=== PATIENT | female | born 1930 | race Caucasian/White ===

== ENCOUNTER 2016-06-23 15:40 | Inpatient (IN) | payer MEDICARE, OTHER ==
[~2016-06-23] VITALS: Ht 149.9 cm; Wt 42.4 kg
[~2016-06-23 15:40] MED LIST: ASPI-664 PO; ATEN50TA PO; GLIP1TAB32 PO; LISI40TA9 PO; PANT40TA3 PO; TRAZ50TA18 PO; ZOC20 PO
--- NOTE | 2016-06-23 19:42 | ERA ---
ER Documentation Chief Complaint Date/Time DATE: 06/23/16 TIME: 19:39 Chief Complaint syncopal episode while eating HPI 83-year-old woman with a history of multiple medical problems including type 2 diabetes, hypertension, chronic anemia presents for evaluation after having had a syncopal event today. Patient was lunch with her daughter eating Eric food when she had an acute syncopal event. Per the daughter who witnessed the whole event patient was talking to her and then passed out without any prodrome. Luckily she was sitting down and there was no head injury or fall out of her chair. Patient took a few seconds to regain consciousness and a few minutes to feel back to her baseline. Patient denies any prodrome of nausea, tunnel vision, or lightheadedness prior to the syncopal event. The event was nonexertional. Patient is a symptomatic at this time. She denies any prior history of a similar event. Denies any recent nausea, vomiting, diarrhea and reports good p.o. intake. She denies any urinary symptoms or GI bleeding symptoms. She denies any chest pain, headache, flank pain prior to the event. She does report that she had a mild headache after the event that resolved spontaneously. ROS All systems reviewed and are negative except as per history of present illness. Medications Home Meds Reported Medications Aspirin (Low Dose Aspirin) 81 Mg Tablet.dr, 81 MG PO DAILY 09/15/14 Glipizide-Metformin (Glipizide-Metformin) 5-500 Tab, 1 TAB PO DAILY, TAB 09/15/14 Lisinopril* (Lisinopril*) 40 Mg Tablet, 40 MG PO DAILY, TAB 09/15/14 Pantoprazole* (Protonix*) 40 Mg Tablet.dr, 40 MG PO DAILY, TAB 09/15/14 Atenolol* (Atenolol*) 50 Mg Tablet, 50 MG PO DAILY, TAB 09/15/14 Simvastatin (Simvastatin) 20 Mg Tablet, 20 MG PO HS, TAB 09/15/14 Trazodone Hcl* (Trazodone Hcl*) 50 Mg Tablet, 50 MG PO HS, TAB 09/15/14 Allergies Allergies: Coded Allergies: sulfamethoxazole (Verified Allergy, Mild, SWOLLEN LIPS/MOUTH 2 DAYS AFTER TAKING MED PER PT, 06/24/16) MD SAID IT COULD BE ALLERGIC RXN TO SAID MEDICINE PER PT trimethoprim (Verified Allergy, Mild, SWOLLEN LIPS/MOUTH 2 DAYS AFTER TAKING MED PER PT, 06/24/16) MD SAID IT COULD BE ALLERGIC RXN TO SAID MEDICINE PER PT PMhx/Soc type 2 diabetes, hypertension, chronic anemia History of Surgery: Yes (COLON RESECTION) Anesthesia Reaction: No Hx Neurological Disorder: No Hx Respiratory Disorders: No Hx Cardiac Disorders: Yes (HTN) Hx Psychiatric Problems: No Hx Miscellaneous Medical Probl: No Hx Alcohol Use: No Hx Substance Use: No Hx Tobacco Use: No FmHx Family History: No coronary disease, No diabetes, No other Physical Exam Vitals Vital Signs Date Time Temp Pulse Resp B/P Pulse Ox O2 Delivery O2 Flow Rate FiO2 06/23/16 15:42 97.9 73 20 203/96 95 Physical Exam General: alert, well appearing, and in no distress, AOx4. normal pulse oximetry. Euvolemic Head: Atraumatic, normocephalic Eyes: pupils equal and reactive, extraocular eye movements intact, sclera anicteric. Oropharynx: moist mucous membranes, pharynx normal without lesions. Neck: supple, no significant adenopathy. No carotid bruits Heart: normal rate, regular rhythm, normal S1, S2, no murmurs, rubs, clicks or gallops. Peripheral pulses: normal Lungs: clear to auscultation, no wheezes, rales or rhonchi, symmetric air entry and normal work of breathing. Abdomen: soft, nontender, nondistended, no masses or organomegaly Extremities: no joint tenderness, deformity or swelling. Skin: normal coloration and turgor, no rashes, no suspicious skin lesions noted. Neurologic: Alert, moving all extremities symmetrically x 4, sensation grossly intact, no gross deficits Result Diagram: 06/23/16212406/23/162124 Results 24 hrs Laboratory Tests Test 06/23/16 20:27 06/23/16 21:25 06/23/16 21:38 Urine Bilirubin NEGATIVE Urine Clarity CLEAR Urine Color LT. YELLOW Urine Glucose NEGATIVE% Urine Hemoglobin TRACE Urine Ketones NEGATIVE Urine Leukocyte Esterase TRACE Urine Microscopic RBC 0-2/HPF Urine Microscopic WBC 0-2/HPF Urine Nitrite NEGATIVE Urine Specific Vaughn 1.010 Urine Squamous Epithelial Cells RARE Urine Total Protein NEGATIVE Urine Urobilinogen 0.2 E.U./dL Urine pH 6.0 Anion Gap 16 Basophils # 0.010^3/ul Basophils % 0.3% Blood Morphology Comment Blood Urea Nitrogen 19mg/dl Calcium Level 10.0mg/dl Carbon Dioxide Level 29mmol/L Chloride Level 101mmol/L Creatinine 0.70mg/dl Eosinophils # 0.310^3/ul Eosinophils % 3.0% Glucose Level 138mg/dl Hematocrit 36.7% Hemoglobin 12.2g/dl Lymphocytes # 1.910^3/ul Lymphocytes % 20.7% Mean Corpuscular Hemoglobin 28.7pg Mean Corpuscular Hemoglobin Concent 33.3g/dl Mean Corpuscular Volume 86.3fl Mean Platelet Volume 8.9fl Monocytes # 0.810^3/ul Monocytes % 8.5% Neutrophils # 6.010^3/ul Neutrophils % 67.5% Nucleated Red Blood Cells # 0.010^3/ul Nucleated Red Blood Cells % 0.0/100WBC Platelet Count 51035^3/UL Potassium Level 3.7mmol/L Red Blood Count 4.2510^6/ul Red Cell Distribution Width 14.5% Sodium Level 142mmol/L Troponin I < 0.012ng/ml White Blood Count 8.910^3/ul Bedside Glucose 139mg/dL Procedures/MDM EKG, MONITORS, & DIAGNOSTIC IMAGING: EKG showing normal sinus rhythm at 70 bpm with first-degree AV block, no ST elevations, ST depressions, positive T-wave inversions in V1 and V2. Normal intervals except for AK interval. Left axis deviation. No WPW, no Brugada, no prolonged QTC, no acute ischemia, no ARVD. CXR: IMPRESSION: 1. Atherosclerotic aorta 2. A 1-cm bleb is seen within the right lower lung zone. 3. Osteoporosis with mild degenerative spine changes along with a dextroscoliotic curve of the thoracic spine. LAB INTERPRETATION: Labs unremarkable MEDICAL DECISION MAKIN-year-old woman with a history of multiple medical problems including type 2 diabetes, hypertension, chronic anemia presents for evaluation after having had a syncopal event today. Her ECG is unremarkable and she has a normal examination , showing elevated BP but asymptomatic. No clinical e/o heart failure, heart murmur, or carotid bruits. No GI bleeding and normal hb. No headache c/f SAH, or flank pain c/f ruptured AAA. Patient will be admitted for high risk syncope, suspect cardiovascularly mediated syncope. Departure Diagnosis: Primary Impression: Syncope Qualified Code: R55 - Syncope, unspecified syncope type Condition: Fair MEHNAZ GENTILE MD Jun 23, 2016 19:42 MEHNAZ GENTILE MD Jun 23, 2016 19:42
[2016-06-23 21:06] LABS: ADD UMIC YES; URINE BILIRUBIN (Dip) NEGATIVE (NEGATIVE); URINE BLOOD (Dip) TRACE (NEGATIVE); URINE COLOR LT. YELLOW (YELLOW); URINE GLUCOSE (Dip) NEGATIVE (NEGATIVE); URINE KETONES (Dip) NEGATIVE (NEGATIVE); URINE LEUKOCYTE ESTERASE (Dip) TRACE (NEGATIVE); URINE NITRITE (Dip) NEGATIVE (NEGATIVE); URINE TOTAL PROTEIN (Dip) NEGATIVE (NEGATIVE); URINE UROBILINOGEN (Dip) 0.2 E.U./dL (0.1-1.0)
--- NOTE | 2016-06-23 21:08 | RADRPT ---
PROCEDURE: XR Chest AP portable CLINICAL INDICATION: Syncope TECHNIQUE: An AP portable radiograph of the chest was submitted. COMPARISON: None. FINDINGS: Support Hardware: None Cardiovascular: The cardiovascular silhouette appears unremarkable, except for atherosclerotic currie e involving the aorta. Lung De Souza: A 1-cm bleb is seen within the right lower lung zone but the lung de souza are otherwise clear. Pleural Spaces: No pneumothorax or pleural effusion is identified. Osseous Structures: Mild diffuse degenerative spine changes are noted with osteoporosis. There is a mild dextroscoliotic curve of the thoracic spine. Soft Tissues: The soft tissues appear unremarkable. IMPRESSION: 1. Atherosclerotic aorta 2. A 1-cm bleb is seen within the right lower lung zone. 3. Osteoporosis with mild degenerative spine changes along with a dextroscoliotic curve of the thor acic spine. Physician Tatyana Date Time Electronically viewed and signed by Physician Tatyana on 06/23/2016 21:08 /
[2016-06-23 21:41] LABS: SQUAMOUS EPITHELIAL CELL,UR RARE; URINE RBCS 0-2 /HPF (0)
[2016-06-23 21:45] LABS: BASOPHILS % 0.3 % (0.0-2.0); EOSINOPHILS # 0.3 10^3/ul (0.0-0.5); HEMATOCRIT 36.7 % (37.0-47.0); HEMOGLOBIN 12.2 g/dl (12.0-16.0); LYMPHOCYTES # 1.9 10^3/ul (0.8-2.9); LYMPHOCYTES % 20.7 % (15.0-51.0); MEAN CORPUSCULAR HEMOGLOBIN 28.7 pg (29.0-33.0); MEAN CORPUSCULAR HGB CONC 33.3 g/dl (32.0-37.0); MEAN CORPUSCULAR VOLUME 86.3 fl (82.0-101.0); MEAN PLATELET VOLUME 8.9 fl (7.4-10.4); MONOCYTE # 0.8 10^3/ul (0.3-0.9); MONOCYTES % 8.5 % (0.0-11.0); NEUTROPHILS % 67.5 % (39.0-77.0); PLATELET COUNT 187 10^3/UL (140-440); RED BLOOD COUNT 4.25 10^6/ul (4.20-5.40); RED CELL DISTRIBUTION WIDTH 14.5 % (11.5-14.5); UNCORRECTED WBC 8.9 10^3/ul (4.8-10.8); WHITE BLOOD COUNT 8.9 10^3/ul (4.8-10.8)
[2016-06-23 21:47] LABS: CONDITION 1; LH ANALYZER COMMENTS 1
[2016-06-23 21:51] LABS: CHLORIDE 101 mmol/L (97-110); POTASSIUM 3.7 mmol/L (3.5-5.1); SODIUM 142 mmol/L (135-144)
[2016-06-23 21:55] LABS: ANION GAP 16 (8-16); BLOOD UREA NITROGEN 19 mg/dl (7-20); CARBON DIOXIDE 29 mmol/L (21-31); GLUCOSE 138 mg/dl (70-220)
[2016-06-23 22:07] LABS: TROPONIN-I < 0.012 ng/ml (0.00-0.12)
[2016-06-24] VITALS (14 sets, daily range): BP systolic 123–227; BP diastolic 60–96; PULSE 50–71; RESP 18; TEMP 98.1; Ht 149.9 cm; Wt 42.4 kg
[2016-06-24] MEDS ORDERED: ATENOLOL 50 MG TAB PO ONE (08:30)
[2016-06-24] MEDS: INSULIN ASPART [NOVOLOG] 3 ML PEN SC SCH ×3 (11:38→21:00)
[2016-06-24] MEDS: PANTOPRAZOLE (EC) 40 MG TAB PO SCH (11:45)
--- NOTE | 2016-06-24 14:36 | RADRPT ---
PROCEDURE: US Carotids. CLINICAL INDICATION: bruit , syncope TECHNIQUE: Multiple sonographic of the carotid bifurcation region and vertebral arteries were obta ined utilizing granado scale, duplex and color-flow imaging. The images were reviewed on a PACS worksta tion. COMPARISON: No prior studies are available for comparison. FINDINGS: Evaluation of the right carotid bifurcation region reveals mild calcific atherosclerotic disease. Evaluation of the left carotid bifurcation region reveals mild calcific atherosclerotic disease. T here is a 23% stenosis in the left carotid bulb. There is antegrade flow within the vertebral arteries bilaterally. RIGHT CAROTID MEASUREMENTS: Common Carotid Ahhoca30 (cm/sec) Internal Carotid Artery - bjjmeegc30.8 (cm/sec) Internal Carotid Artery - mid50.8 (cm/sec) Internal Carotid Artery - ylzwbf93.5 (cm/sec) Internal Carotid/Common Carotid1.71 LEFT CAROTID MEASUREMENTS: Common Carotid Ahgbeg97.4 (cm/sec) Internal Carotid Artery - ujjuxwbd29.9 (cm/sec) Internal Carotid Artery - mid52.8 (cm/sec) Internal Carotid Artery - jmryla59.8 (cm/sec) Internal Carotid/Common Carotid1.23 RPTAT: AA IMPRESSION: No evidence for hemodynamically significant stenosis in the bilateral internal carotid arteries - va lidated velocity measurements with angiographic measurements, velocity criteria are extrapolated fro m diameter data as defined by the Society of Radiologists in Ultrasound Consensus Conference Radiolo gy 2003; 229;340-346. This study does indirectly reference the measurement of the distal ICA diamet er as the denominator for stenosis measurement. Normal antegrade flow in the vertebral arteries bilaterally. .Jose Enrique Santacruz MD, Date Time Electronically viewed and signed by .Jose Enrique Santacruz MD, MD on 06/24/2016 14:36 .S/
--- NOTE | 2016-06-24 18:50 | HP ---
DATE OF ADMISSION: 06/23/2016 CHIEF COMPLAINT AND HISTORY OF PRESENT ILLNESS: The patient is an 85-year-old lady well known to me from previous followup, with history of type 2 diabetes mellitus, hypertension, chronic anemia, who while having lunch with the daughter yesterday having a sandwich, when her daughter had witnessed t he patient passing out and fell forward. There was no history of fall. A few seconds later, the pa tient regained consciousness. The patient denied any nausea, vomiting, headache, dizziness, vertigo prior to the event. The patient also did not have any chest pains or shortness of breath at that t celio. Patient was brought into the emergency room from where she was admitted for evaluation of sync ope. MEDICATIONS: 1. Aspirin 81 mg daily. 2. Glipizide. 3. Metformin 5/500 one tab p.o. every day. 4. Lisinopril 40 mg daily. 5. Pantoprazole 40 mg daily. 6. Atenolol 50 mg daily. 7. Simvastatin 20 mg p.o. daily. 8. Trazodone 50 mg at bedtime. ALLERGIES: SULFA. REVIEW OF SYSTEMS: HEAD: The patient denies any headaches, focal weakness, or numbness. No prior history of TIA. EYES: Prior history of surgery for glaucoma. The patient denies any blurry vision. ENT: Noncontributory. NECK: No history of thyroid disease. CHEST: No bronchitis, hayfever, or asthma. Patient smoked for about 20+ years, stopped almost 30 y ears back. CARDIOVASCULAR: No chest pain, palpitations. History of hyperlipidemia. No history of exertional chest pain. Diabetes mellitus type 2 for the last 14 years, well controlled. GASTROINTESTINAL: No constipation, diarrhea, change in bowel habits. History of colonoscopy done a bout 5 years ago showed polyps and question possible malignant. The patient has been advised to fol low up with GI MD with colonoscopy, and the patient has not followed up so far. GENITOURINARY: No history of dysuria, hematuria, kidney stones. Mammogram 4 years ago was normal. FAMILY HISTORY: Mother had hypertension, of [place] in her 50s. No history of breast or colon canc er in the family. The patient is , has 1 daughter. PHYSICAL EXAMINATION: GENERAL: The patient is an average-built female who is presently awake, alert. VITAL SIGNS: Blood pressure max over the last 24 hours of 227/93, presently 131/65, temperature 98. 2, heart rate 64 per minute regular. O2 sat 95% on room air. HEENT: Normocephalic. Mild pallor without cyanosis or icterus. Tongue is coated, dry. NECK: Supple. No thyromegaly, bruits, or lymphadenopathy noted. No carotid bruits evident. HEART: S1, S2 heard with no definite gallops or murmurs. ABDOMEN: Soft, nontender, no hepatosplenomegaly. EXTREMITIES: No edema. Pedal pulsations 1+ bilaterally. Homans sign is negative. NEUROLOGIC: The patient is awake, alert. Will maintain long-term and short-term memory. No signs of meningismus. Cranial nerves II through XII within normal limits. Reflexes symmetrical in both u pper and lower extremities. Good strength both upper and lower extremities. Gait not tested. RECTAL: Deferred due to patient discomfort. LABORATORY DATA: WBC count 8.9, hematocrit 36.9, platelet count 187,000. Sodium 142, potassium 3.7 , BUN 19, creatinine 0.7. Troponin 0.01. Glucose 139. UA shows trace positive leukocyte esterase and urine hemoglobin trace positive. Chest x-ray shows atherosclerotic aorta, osteoporosis of the t horacic spine. IMPRESSION: 1. Syncope, query vasovagal, query cardiac arrhythmia. 2. Diabetes mellitus type 2. 3. Accelerated hypertension. 4. Osteopenia. 5. History of malignant colonic polyps. Patient has not had a GI workup as recommended. PLAN: The patient will be admitted to the telemetry. Closely monitor the rhythm. Obtain . S he may have an underlying urinary tract infection as well. Will obtain a urine culture and sensitiv ity. Obtain carotid studies. Initiate physical therapy evaluation for transfer and gait training. Neurology consultation if necessary in due course. Dictated By: BORIS ERNANDEZ MD SR/NTS Conf#: [id number] DID#: [id number]
[2016-06-24] MEDS: ACETAMINOPHEN 500 MG TAB PO PRN (20:04)
[2016-06-24] MEDS: traZODone 50 MG TAB PO SCH (21:14)
[2016-06-24] MEDS: SIMVASTATIN 20 MG TAB PO SCH (21:14)
[2016-06-25] VITALS (15 sets, daily range): BP systolic 119–183; BP diastolic 52–76; PULSE 50–72; RESP 18–20
[2016-06-25] MEDS: ACCUCHECK XX SCH (02:00)
[2016-06-25] MEDS: PANTOPRAZOLE (EC) 40 MG TAB PO SCH (04:56)
[2016-06-25 07:22] LABS: ALBUMIN 3.5 g/dl (3.3-4.9)
[2016-06-25 07:23] LABS: POTASSIUM 4.7 mmol/L (3.5-5.1)
[2016-06-25 07:25] LABS: BILIRUBIN,INDIRECT 0.3 mg/dl (0-1.1); BILIRUBIN,TOTAL 0.3 mg/dl (0.2-1.3); CREATININE 0.76 mg/dl (0.44-1.00)
[2016-06-25 07:26] LABS: ALBUMIN/GLOBULIN RATIO 1.25; CALCIUM 9.5 mg/dl (8.4-10.2); CHOL/HDL RATIO 2.6 RATIO; TOTAL PROTEIN 6.3 g/dl (6.1-8.1)
[2016-06-25 07:27] LABS: BASOPHILS % 0.1 % (0.0-2.0); EOSINOPHILS # 0.2 10^3/ul (0.0-0.5); EOSINOPHILS % 3.1 % (0.0-7.0); HEMATOCRIT 34.3 % (37.0-47.0); HEMOGLOBIN 11.5 g/dl (12.0-16.0); LYMPHOCYTES # 1.4 10^3/ul (0.8-2.9); LYMPHOCYTES % 17.8 % (15.0-51.0); MEAN CORPUSCULAR HEMOGLOBIN 29.1 pg (29.0-33.0); MEAN CORPUSCULAR HGB CONC 33.6 g/dl (32.0-37.0); MEAN CORPUSCULAR VOLUME 86.5 fl (82.0-101.0); MONOCYTE # 0.6 10^3/ul (0.3-0.9); MONOCYTES % 7.5 % (0.0-11.0); NEUTROPHIL # 5.5 10^3/ul (1.6-7.5); NEUTROPHILS % 71.5 % (39.0-77.0); PLATELET COUNT 171 10^3/UL (140-440); RED BLOOD COUNT 3.97 10^6/ul (4.20-5.40); RED CELL DISTRIBUTION WIDTH 14.4 % (11.5-14.5); UNCORRECTED WBC 7.7 10^3/ul (4.8-10.8); WHITE BLOOD COUNT 7.7 10^3/ul (4.8-10.8)
[2016-06-25 07:44] LABS: CONDITION 1
[2016-06-25] MEDS: INSULIN ASPART [NOVOLOG] 3 ML PEN SC SCH ×4 (08:00→20:26)
[2016-06-25] MEDS: ASPIRIN 81 MG TAB PO SCH (08:35)
[2016-06-25] MEDS: LISINOPRIL 20 MG TAB PO SCH (08:36)
[2016-06-25] MEDS ORDERED: ATENOLOL 50 MG TAB PO SCH (09:00)
--- NOTE | 2016-06-25 11:47 | RADRPT ---
PROCEDURE: CT Brain without contrast. CLINICAL INDICATION: Headache. Hypertension. TECHNIQUE: A CT of the brain was performed on a multidetector CT scanner utilizing axial sections from the skull base through the vertex without contrast. Images were reviewed on a high-resolution [employer] workstation. Exam CTDI = 45.01 mGy and the DLP = 720.23 mGy-cm. One or more of the following dose reduction techniques were used: Automated exposure control Adjustment of the mA and/or kV according to patient size. Use of iterative reconstruction technique. COMPARISON: None available FINDINGS: Mild diffuse cerebral and cerebellar atrophy is present. There is proportionate dilatation of the v entricular system and sulci in a symmetric fashion. There is prominence of the extraaxial spaces sec ondary to atrophy. There is no evidence of intracranial hemorrhage, mass effect or midline shift. N o abnormal intra-axial or extra-axial fluid collections are seen. The density of the brain is ventura l and the granado/white matter differentiation is well preserved. Mild patchy diffuse deep white matte r microangiopathic ischemic change is seen. The osseous structures and visualized paranasal sinus es are unremarkable. Vascular calcifications are identified. IMPRESSION: 1. No intracranial hemorrhage, mass effect or midline shift. 2. Mild generalized atrophy. Mild microangiopathic ischemic change. 3. Intracranial atherosclerosis. RPTAT: BB .Teressa Teague MD, Date Time Electronically viewed and signed by .Teressa Teague MD, on 06/25/2016 11:46 .O/
[2016-06-25] MEDS: ACETAMINOPHEN 500 MG TAB PO PRN (12:14)
--- NOTE | 2016-06-25 13:13 | RADRPT ---
Echocardiogram Report Patient Name: KAROLINA JORDAN Gender: Female Date: 1930 Study Date: 25-Jun-2016 Material Planner: Jose J Corbett [facility] Location: 5556 Ref. Physician: BORIS ERNANDEZ Quality: Good Procedures: Transthoracic echocardiogram with complete 2D, M-Mode, and doppler examination. Indications: Evaluate Left Ventricular function. 2D/M Mode Doppler Measurement Value Normal Ranges Measurement Value Normal Ranges LVIDd 2D 4.0 3.5 - 5.6 cm AV Peak Paresh 1.2 m/sec LVIDs 2D 2.0 2.1 - 4.1 cm AV Peak PG 5.8 mmHg LVPWd 2D 0.8 0.6 - 1.1 cm LVOT Peak Paresh 1.0 m/sec IVSd 2D 0.8 0.6 - 1.1 cm LVOT Peak PG 3.6 mmHg AoR Diam 2D 3.1 2.0 - 3.7 cm MV E Peak Paresh 0.8 m/sec EDV 2D 70.4 cm3 MV A Peak Paresh 1.1 m/sec ESV 2D 8.6 cm3 MV E/A 0.7 LA Dimen 2D 3.0 2.3 - 4.0 cm MV Decel Time 174 msec MV Decel Mobile 5 MV E/A 0.7 TR Peak Paresh 2.3 m/sec TR Peak PG 22.0 mmHg RVSP 25.0 mmHg Findings Left Ventricle: Normal left ventricular systolic function. Normal left ventricular cavity size. Normal left ventricular wall thickness. Ejection fraction is visually estimated at 65 %. Tissue Doppler/Mitral Doppler indices are consistent with impaired relaxation (Stage I diastolic dysfunction). Right Ventricle: Normal right ventricular size. Normal right ventricular systolic function. Left Atrium: The left atrium is normal in size. Right Atrium: The right atrium is normal in size. Mitral Valve: Normal appearance of the mitral valve. Mild mitral annular calcification. Mild mitral valve regurgitation. Aortic Valve: Aortic sclerosis without stenosis. Trileaflet aortic valve. Trace aortic valve regurgitation. Tricuspid Valve: Normal appearance of the tricuspid valve. Unable to obtain RVSP due to minimal presence of tricuspid regurgitation. Estimated peak PA systolic pressure mmHg. There is trace tricuspid regurgitation. Pulmonic Valve: Normal pulmonic valve appearance. There is mild pulmonic regurgitation. Pericardium: Normal pericardium with no significant pericardial effusion. Aorta: Normal aortic root. IVC: Normal size and normal respiratory collapse consistent with normal right atrial pressure. Conclusions Normal left ventricular systolic function. Normal left ventricular cavity size. Normal left ventricular wall thickness. Ejection fraction is visually estimated at 65 %. Tissue Doppler/Mitral Doppler indices are consistent with impaired relaxation (Stage I diastolic dysfunction). Normal right ventricular size. Normal right ventricular systolic function. Aortic sclerosis without stenosis. Trileaflet aortic valve. Trace aortic valve regurgitation. Normal appearance of the tricuspid valve. Unable to obtain RVSP due to minimal presence of tricuspid regurgitation. Estimated peak PA systolic pressure mmHg. There is trace tricuspid regurgitation. No Vegetation, masses, or thrombi seen. Electronically Signed By: Jerry Hsieh 25-Jun-2016 13:13:11 -0800 Patient Name: KAROLINA JORDAN Study Date: 25-Jun-2016 [id number]
--- NOTE | 2016-06-25 14:29 | PN ---
DATE: 06/25/2016 SUBJECTIVE: The patient has mild headaches with no focal weakness or numbness. Dizziness has improve d. The patient more active today. Ambulating well without any shortness of breath or chest pain. PHYSICAL EXAMINATION: GENERAL: The patient appears to be in no acute distress. VITAL SIGNS: Heart rate 54 per minute, blood pressure 114/65, ____ . Orthostatics not done. Tempera ture 97.9, pulse ox 94% on room air. HEENT: Head normocephalic. Mild pallor without cyanosis or icterus. CHEST: Clinically clear. HEART: S1, S2, no murmur or gallops. ABDOMEN: Soft, nontender. No hepatosplenomegaly. EXTREMITIES: No edema. NEUROLOGICAL: No localizing or lateralizing signs. LABORATORY DATA: Blood glucose levels: 108, 124, 139, hemoglobin A1c 7.4. Sodium 140, potassium 4.7, BUN 25, creatinine 0.76, LDL 54. Urine culture negative protein after [address] scan of the brain was obtained which showed no intracranial hemorrhage, mass effect or midline sh ift. Mild generalized atrophy. Mild microangiopathic ischemic changes. Carotid Doppler shows no evid ence of hemodynamic ____ stenosis bilateral anterior carotid arteries. Echocardiogram has been done which showed normal left ventricular systolic function. Ejection fraction 65%, aortic sclerosis wi thout stenosis. IMPRESSION: 1. Syncope, cardio vasovagal. Patient also bradycardic secondary to atenolol, which has been held. Will proceed with cardiology consultation Dr Hsieh. 2. Diabetes mellitus, type 2. 3. Hypertension. Better controlled. 4. Osteopenia. 5. History of malignant colonic polyps. ER workup to be undertaken ____ course. PLAN: Will increase activity gradually. Grossly monitor her rhythm. Will discuss with nursing again regarding checking orthostatics. Optimize medication for hypertension. Followup cardiology recommend ations, per Dr. Hsieh. Dictated By: BORIS ERNANDEZ MD SR/JOSE JUAN Conf#: [id number] DID#: [id number]
[2016-06-25] MEDS ORDERED: GLUCOSE GEL 15 GRAM TUBE PO PRN ×2 (15:00)
[2016-06-25] MEDS ORDERED: GLUCOSE GEL 15 GRAM TUBE BUCCAL PRN (15:00)
[2016-06-25] MEDS ORDERED: DEXTROSE 50% 50 ML SYRINGE IV PRN ×2 (15:00)
[2016-06-25] MEDS ORDERED: GLUCAGON 1 MG INJ IM PRN (15:00)
[2016-06-25] MEDS: traZODone 50 MG TAB PO SCH (20:26)
[2016-06-25] MEDS: SIMVASTATIN 20 MG TAB PO SCH (20:26)
--- NOTE | 2016-06-25 21:49 | CONS ---
Date/Time of Note Date/Time of Note DATE: 06/25/16 TIME: 21:20 Assessment/Plan Assessment/Plan Chief Complaint/Hosp Course Impression: Syncope: likely vasovagal as no other clear source. pt with neg brain ct/carotid /echo for etiology. has r/o for acs also without angina or equivalent. orthostatics negative. pt was on atenolol but no e/o of sick sinus or av block on tele - cont hold atenolol - cont tele monitoring - ambulate and assess for recurrent symptoms HTN- uncontrolled, severe elevation on admit - cont lisinopril - if still > 150/90 on average add amlodipine - low na diet DM2 - per primary - cont asa/statin for primary prevention Problems: Consultation Date/Type/Reason Admit Date/Time Jun 25, 2016 at 14:57 Date of Consultation: Jun 25, 2016 Type of Consultation: Cardiology Reason for Consultation Syncope Referring Provider: BORIS ERNANDEZ MD Hx of Present Illness Ms. Fernandes is a 85 y.o. woman with dm2, htn who presented to [facility] with syncope. Pt reports she was eating a sandwhich with family when she had a brief LOC without warning. Pt states she was seated, states her head fell forward into her plate of food. She states she woke up after only a second or two and felt better after a few minutes. Denies any diaphoresis, n/v, dizziness, sob, cp prior or after events. no stroke like or seizure type symptoms. pt denies any previous episodes. denies fevers chills, sweats, n/v, diarrhea. She is ambulatory at baseline without fall/cp/sob. Constitutional: no complaints Eyes: no complaints ENT: no complaints Respiratory: no complaints Cardiovascular: other (syncope) Gastrointestinal: no complaints Genitourinary: no complaints Musculoskeletal: no complaints Skin: no complaints Neurologic: no complaints Endocrine: no complaints Lymphatic: no complaints Psychological: nl mood/affect, no complaints Past Medical History DM2 HTN Anemia Colonic Polyps Past Surgical History no cardiac surgery Family History Significant Family History: other (no cad) Social History Alcohol Use: none Smoking Status: Former smoker Drug Use: none Exam/Review of Systems Vital Signs Vitals Vital Signs Date Time Temp Pulse Resp B/P Pulse Ox O2 Delivery O2 Flow Rate FiO2 06/25/16 20:39 65 06/25/16 20:25 179/74 06/25/16 20:23 97.9 20 95 06/24/16 10:00 Room Air Intake and Output 06/24/16 06/24/16 06/25/16 15:00 23:00 07:00 Intake Total 740 ml 600 ml Output Total 400 ml Balance 740 ml 200 ml Exam thin Constitutional: alert, oriented Psych: nl mood/affect, no complaints Head: normocephalic Eyes: EOMI, nl conjunctiva ENMT: mucosa pink and moist, nl nasal mucosa & septum Neck: non-tender, supple, No jvd Respiratory: clear to auscultation, normal air movement Cardiovascular: nl pulses, regular rate and rhythm, No S3, No S4, No diastolic murmur, No edema, No irregular rhythm, No jugular venous distention (JVD), No systolic murmur Gastrointestinal: non-tender, soft Musculoskeletal: nl extremities to inspection Extremities: normal pulses Neurological: AUDIENCE DEVELOPMENT MANAGER II-XII intact, nl mental status, nl speech, nl strength Results Result Diagram: 06/25/1614 06/25/1614 Results 24 hrs Laboratory Tests Test 06/25/16 06:14 06/25/16 07:58 06/25/16 11:37 06/25/16 17:19 Alanine Aminotransferase (ALT/SGPT) 37 Albumin 3.5 Albumin/Globulin Ratio 1.25 Alkaline Phosphatase 102 Anion Gap 14 Aspartate Amino Transf (AST/SGOT) 37 Basophils # 0.0 Basophils % 0.1 Blood Urea Nitrogen 25 H Calcium Level 9.5 Carbon Dioxide Level 31 Chloride Level 100 Cholesterol Level 110 Cholesterol/HDL Ratio 2.6 Creatinine 0.76 Direct Bilirubin 0.00 Eosinophils # 0.2 Eosinophils % 3.1 Globulin 2.80 Glucose Level 127 HDL Cholesterol 41 Hematocrit 34.3 L Hemoglobin 11.5 L Hemoglobin A1c 7.4 H Indirect Bilirubin 0.3 LDL Cholesterol, Calculated 54 Lymphocytes # 1.4 Lymphocytes % 17.8 Mean Corpuscular Hemoglobin 29.1 Mean Corpuscular Hemoglobin Concent 33.6 Mean Corpuscular Volume 86.5 Mean Platelet Volume 9.0 Monocytes # 0.6 Monocytes % 7.5 Neutrophils # 5.5 Neutrophils % 71.5 Nucleated Red Blood Cells # 0.0 Nucleated Red Blood Cells % 0.0 Platelet Count 171 Potassium Level 4.7 Red Blood Count 3.97 L Red Cell Distribution Width 14.4 Sodium Level 140 Total Bilirubin 0.3 Total Protein 6.3 Triglycerides Level 76 White Blood Count 7.7 Bedside Glucose 124 139 109 Test 06/25/16 20:21 Bedside Glucose 183 Medications Medications Current Medications Clonidine (Catapres) 0.1 mg Q4H PRN PO SBP > 170 OR DBP > 110 Last administered on 06/25/16 20:33; Admin Dose 0.1 MG; Start 06/24/16 at 11:00 Lisinopril (Zestril) 40 mg DAILY PO Last administered on 06/25/16 08:36; Admin Dose 40 MG; Start 06/25/16 at 09:00 Pantoprazole (Protonix Tab) 40 mg DAILY@06 PO Last administered on 06/25/16 04 :56; Admin Dose 40 MG; Start 06/24/16 at 12:00 Trazodone HCl (Desyrel) 50 mg HS PO Last administered on 06/25/16 20:26; Admin Dose 50 MG; Start 06/24/16 at 21:00 Aspirin (Aspirin) 81 mg DAILY PO Last administered on 06/25/16 08:35; Admin Dose 81 MG; Start 06/25/16 at 09:00 Diagnostic Test (Pha) (Accucheck) 1 ea 02 XX ; Start 06/25/16 at 02:00 Simvastatin (Zocor) 20 mg HS PO Last administered on 06/25/16 20:26; Admin Dose 20 MG; Start 06/24/16 at 21:00 Acetaminophen (Tylenol Tab) 500 mg Q4H PRN PO PAIN AND OR ELEVATED TEMP Last administered on 06/25/16 12:14; Admin Dose 500 MG; Start 06/24/16 at 20:00 Miscellaneous Information 1 ea NOTE XX ; Start 06/25/16 at 15:00 Glucose (Glutose) 15 gm Q15M PRN PO DECREASED GLUCOSE; Start 06/25/16 at 15:00 Glucose (Glutose) 22.5 gm Q15M PRN PO DECREASED GLUCOSE; Start 06/25/16 at 15: 00 Dextrose (D50w Syringe) 25 ml Q15M PRN IV DECREASED GLUCOSE; Start 06/25/16 at 15:00 Dextrose (D50w Syringe) 50 ml Q15M PRN IV DECREASED GLUCOSE; Start 06/25/16 at 15:00 Glucagon (Glucagen) 1 mg Q15M PRN IM DECREASED GLUCOSE; Start 06/25/16 at 15:00 Glucose (Glutose) 15 gm Q15M PRN BUCCAL DECREASED GLUCOSE; Start 06/25/16 at 15 :[address] head report reviewed in emr vascular carotid u/s report reviewed, ant flow vertebral, no hemodynamic sig lesion echo- normal lv systolic fxn ekg tracing reviewed:RADHA tele tracing reviewed: DEL YO Jun 25, 2016 21:33
[2016-06-26] VITALS (12 sets, daily range): BP systolic 150–196; BP diastolic 68–86; PULSE 53–64; RESP 16–18
[2016-06-26] MEDS: ACCUCHECK XX SCH (02:54)
[2016-06-26] MEDS: PANTOPRAZOLE (EC) 40 MG TAB PO SCH (05:23)
[2016-06-26] MEDS: ASPIRIN 81 MG TAB PO SCH (08:18)
[2016-06-26] MEDS: LISINOPRIL 20 MG TAB PO SCH (08:19)
[2016-06-26] MEDS: INSULIN ASPART [NOVOLOG] 3 ML PEN SC SCH ×4 (08:21→21:00)
[2016-06-26] MEDS: ACETAMINOPHEN 500 MG TAB PO PRN (12:55)
[2016-06-26] MEDS: ENOXAPARIN 30 MG/0.3 ML SYG SC SCH (15:38)
--- NOTE | 2016-06-26 16:31 | PN ---
DATE: 06/26/2016 SUBJECTIVE: The patient has mild headaches but no dizziness. No focal weakness or numbness. Denies a ny chest pain or shortness of breath. PHYSICAL EXAMINATION: GENERAL: The patient is in no acute distress. VITAL SIGNS: Temperature 98.3, blood pressure lying down 196/86, sitting of 179/75, standing was 166 /73. Heart rate 60 per minute, O2 saturation is 97% room air. HEENT: No pallor, cyanosis or icterus. Tongue is coated, dry. NECK: Supple. . CHEST: Clinically clear. HEART: S1, S2 with no murmurs or gallops. ABDOMEN: Soft, nontender. No hepatosplenomegaly. EXTREMITIES: No edema. NEURO: No localizing or lateralizing signs. LABORATORY: Studies not done today. IMPRESSION: 1. Syncope, likely vasovagal, hypertension. Atenolol has been discontinued. Headaches could be seco ndary to withdrawal of beta blockers. 2. Diabetes mellitus type 2 well controlled. 3. Hypertension with mild orthostasis. 4. Osteopenia. 5. Malignant colon polyps. PLAN: Discussed with Dr. Hsieh, cardiac rene there are no plans to do any other workup at this po int as inpatient. Outpatient stress testing will be considered. Will discharge telemetry, transfer t he patient to the medical floor. Will consider adding another agent to JENN inhibitors if necessary. Let patient ambulate and reevaluate in the morning. Recheck labs including electrolytes, BUN and cre atinine, resume in a.m. Dictated By: BORIS ERNANDEZ MD, SR/JOSE JUAN Conf#: [id number] DID#: [id number]
[2016-06-26] MEDS: SIMVASTATIN 20 MG TAB PO SCH (21:21)
[2016-06-26] MEDS: traZODone 50 MG TAB PO SCH (21:21)
--- NOTE | 2016-06-26 21:35 | CONS ---
Date/Time of Note Date/Time of Note DATE: 06/26/16 TIME: 21:30 Assessment/Plan Assessment/Plan Chief Complaint/Hosp Course Impression: Syncope: likely vasovagal as no other clear source. pt with neg brain ct/carotid /echo for etiology. has r/o for acs also without angina or equivalent. pt was on atenolol but no e/o of sick sinus or av block on tele - hold atenolol - cont tele monitoring - ambulate and assess for recurrent symptoms HTN- uncontrolled, severe elevation on admit - cont lisinopril 40mgdaily - if still > 150/90 on average add amlodipine 5mg daily - low na diet DM2 - per primary - cont asa/statin for primary prevention Problems: Consultation Date/Type/Reason Admit Date/Time Jun 25, 2016 at 14:57 Initial Consult Date 06/25/16 Type of Consultation: Cardiology Referring Provider: BORIS ERNANDEZ MD 24 HR Interval Summary Free Text/Dictation no acute events. denies dizziness, recurrent syncope. pt without cp/sob. tolerating po. ambulating to bathroom. does report headache, no change in vision /sensation/strength. no n/v. Constitutional: no complaints Detailed Summary Eyes: no complaints ENT: no complaints Respiratory: no complaints Cardiovascular: no complaints Gastrointestinal: no complaints Neurologic: headache Exam/Review of Systems Vital Signs Vitals Vital Signs Date Time Temp Pulse Resp B/P Pulse Ox O2 Delivery O2 Flow Rate FiO2 06/26/16 21:08 97.8 63 16 150/81 96 06/26/16 04:30 Room Air Intake and Output 06/25/16 06/25/16 06/26/16 15:00 23:00 07:00 Intake Total 1120 ml 720 ml Output Total 350 ml Balance 1120 ml 370 ml Exam Constitutional: alert, oriented Psych: nl mood/affect, no complaints Head: normocephalic Eyes: EOMI, nl conjunctiva ENMT: mucosa pink and moist, nl nasal mucosa & septum Neck: non-tender, supple, No jvd Respiratory: clear to auscultation, normal air movement Cardiovascular: nl pulses, regular rate and rhythm, No S3, No S4, No diastolic murmur, No edema, No irregular rhythm, No jugular venous distention (JVD), No systolic murmur Gastrointestinal: non-tender, soft Musculoskeletal: nl extremities to inspection Extremities: normal pulses Neurological: SALES PROMOTION MANAGER II-XII intact, nl mental status, nl speech, nl strength Constitutional: alert Results Result Diagram: 06/25/1614 06/25/1614 Results 24 hrs Laboratory Tests Test 06/26/16 02:12 06/26/16 06:37 06/26/16 07:52 06/26/16 11:20 Bedside Glucose 120 156 124 Troponin I 0.010 Test 06/26/16 17:23 06/26/16 20:13 Bedside Glucose 95 160 Medications Medications Current Medications Clonidine (Catapres) 0.1 mg Q4H PRN PO SBP > 170 OR DBP > 110 Last administered on 06/25/16 20:33; Admin Dose 0.1 MG; Start 06/24/16 at 11:00 Lisinopril (Zestril) 40 mg DAILY PO Last administered on 06/26/16 08:19; Admin Dose 40 MG; Start 06/25/16 at 09:00 Pantoprazole (Protonix Tab) 40 mg DAILY@06 PO Last administered on 06/26/16 05 :23; Admin Dose 40 MG; Start 06/24/16 at 12:00 Trazodone HCl (Desyrel) 50 mg HS PO Last administered on 06/26/16 21:21; Admin Dose 50 MG; Start 06/24/16 at 21:00 Aspirin (Aspirin) 81 mg DAILY PO Last administered on 06/26/16 08:18; Admin Dose 81 MG; Start 06/25/16 at 09:00 Diagnostic Test (Pha) (Accucheck) 1 ea 02 XX Last administered on 06/26/16 02: 54; Admin Dose 1 EA; Start 06/25/16 at 02:00 Simvastatin (Zocor) 20 mg HS PO Last administered on 06/26/16 21:21; Admin Dose 20 MG; Start 06/24/16 at 21:00 Acetaminophen (Tylenol Tab) 500 mg Q4H PRN PO PAIN AND OR ELEVATED TEMP Last administered on 06/26/16 12:55; Admin Dose 500 MG; Start 06/24/16 at 20:00 Miscellaneous Information 1 ea NOTE XX ; Start 06/25/16 at 15:00 Glucose (Glutose) 15 gm Q15M PRN PO DECREASED GLUCOSE; Start 06/25/16 at 15:00 Glucose (Glutose) 22.5 gm Q15M PRN PO DECREASED GLUCOSE; Start 06/25/16 at 15: 00 Dextrose (D50w Syringe) 25 ml Q15M PRN IV DECREASED GLUCOSE; Start 06/25/16 at 15:00 Dextrose (D50w Syringe) 50 ml Q15M PRN IV DECREASED GLUCOSE; Start 06/25/16 at 15:00 Glucagon (Glucagen) 1 mg Q15M PRN IM DECREASED GLUCOSE; Start 06/25/16 at 15:00 Glucose (Glutose) 15 gm Q15M PRN BUCCAL DECREASED GLUCOSE; Start 06/25/16 at 15 :00 Enoxaparin Sodium (Lovenox) 30 mg DAILY SC Last administered on 06/26/16t 15:38 ; Admin Dose 30 MG; Start 06/26/16 at 14:00 Procedures Procedures tele reviewed: sinus carri while sleeping, otherwise nsr DEL TRUONG Jun 26, 2016 21:35
[2016-06-27] MEDS: ACCUCHECK XX SCH (01:02)
[2016-06-27 04:11] VITALS: BP_SYST 173; BP_SYST 174; BP_SYST 189; BP_DIAS 74; BP_DIAS 79; BP_DIAS 81; PULSE 69; PULSE 73
[2016-06-27] MEDS: PANTOPRAZOLE (EC) 40 MG TAB PO SCH (05:15)
[2016-06-27 05:45] LABS: BASOPHILS % 0.4 % (0.0-2.0); EOSINOPHILS # 0.4 10^3/ul (0.0-0.5); EOSINOPHILS % 4.8 % (0.0-7.0); HEMATOCRIT 36.8 % (37.0-47.0); HEMOGLOBIN 12.2 g/dl (12.0-16.0); LYMPHOCYTES # 1.7 10^3/ul (0.8-2.9); LYMPHOCYTES % 20.5 % (15.0-51.0); MEAN CORPUSCULAR HEMOGLOBIN 28.6 pg (29.0-33.0); MEAN CORPUSCULAR HGB CONC 33.2 g/dl (32.0-37.0); MEAN CORPUSCULAR VOLUME 86.1 fl (82.0-101.0); MEAN PLATELET VOLUME 9.4 fl (7.4-10.4); MONOCYTE # 0.7 10^3/ul (0.3-0.9); MONOCYTES % 8.2 % (0.0-11.0); NEUTROPHIL # 5.5 10^3/ul (1.6-7.5); NEUTROPHILS % 66.1 % (39.0-77.0); PLATELET COUNT 196 10^3/UL (140-440); RED BLOOD COUNT 4.27 10^6/ul (4.20-5.40); RED CELL DISTRIBUTION WIDTH 14.6 % (11.5-14.5); UNCORRECTED WBC 8.3 10^3/ul (4.8-10.8); WHITE BLOOD COUNT 8.3 10^3/ul (4.8-10.8)
[2016-06-27 05:49] LABS: POTASSIUM 4.2 mmol/L (3.5-5.1)
[2016-06-27 05:51] LABS: CREATININE 0.6 mg/dl (0.44-1.00)
[2016-06-27 05:52] LABS: CALCIUM 9.7 mg/dl (8.4-10.2); CONDITION 1; LH ANALYZER COMMENTS 1; MAGNESIUM 1.7 mg/dl (1.7-2.5)
[2016-06-27 07:54] VITALS: BP 146/66; RESP 18
[2016-06-27] MEDS: INSULIN ASPART [NOVOLOG] 3 ML PEN SC SCH ×2 (08:00→12:00)
[2016-06-27] MEDS ORDERED: DILTIAZEM 120 MG TAB PO SCH ×2 (09:00)
[2016-06-27] MEDS: ASPIRIN 81 MG TAB PO SCH (09:11)
[2016-06-27] MEDS: LISINOPRIL 20 MG TAB PO SCH (09:11)
[2016-06-27] MEDS: ENOXAPARIN 30 MG/0.3 ML SYG SC SCH (09:12)
[2016-06-27] MEDS ORDERED: DILTIAZEM 60 MG TAB PO SCH (09:30)
--- NOTE | 2016-06-27 17:04 | PN ---
DATE: 06/27/2016 SUBJECTIVE: Patient has minimal headache. No dizziness, no shortness of breath. Ambulating well, took a shower. Denies any chest pain or palpitations at this time. PHYSICAL EXAMINATION: GENERAL: Patient in no acute distress. VITAL SIGNS: Temperature 198.0, blood pressure 146/66. Her blood pressure was higher this morning. Started on Cardizem long acting 120 mg daily with improvement of her blood pressures. LUNGS: Clinically clear. HEART: S1, S2 heard. No gallops. EXTREMITIES: No edema. IMPRESSION: 1. Essential hypertension, well controlled, status post syncope. 2. Diabetes mellitus type 2, well controlled. 3. Osteopenia. PLAN: The patient's overall medical condition is stable. We will consider discharge and do outpati ent stress testing. Dictated By: BORIS ERNANDEZ MD, SR/JOSE JUAN Conf#: [id number] DID#: [id number]
--- NOTE | 2016-06-28 05:43 | DS ---
DATE OF ADMISSION: 06/25/2016 DATE OF DISCHARGE: 06/27/2016 FINAL DIAGNOSES: 1. Status post acute syncope, likely vasovagal, probably complicated by bradycardia from beta block ers. 2. Diabetes mellitus type 2. 3. Hypertension. 4. Osteopenia. 5. History of malignant colonic polyps. The patient has not had a GI workup as recommended. HOSPITAL COURSE: The patient is an 85-year-old lady, well known to me from previous followup, with the patient having diabetes mellitus type 2 and chronic anemia, who while having lunch with her daug hter having a sandwich had this passed out and fell forward. There is no history of falls. The patie nt was brought into the emergency room, from where she was admitted. The patient was found to be in no acute distress. The initial blood pressure was 227/93. The patient was continued on atenolol a nd it was discontinued after the heart rate dropped into the 50s. The patient was seen by Dr. Keri gallegos from a cardiology standpoint. Echocardiogram was performed, which showed normal LV systolic fun ction, EF of 65%, aortic sclerosis without stenosis, and trace aortic valve regurgitation. Her ricardo l function remained stable. Blood glucose levels also remained stable and Cardizem-CD 120 mg was ad ded for better control of her blood pressure, which she tolerated well. She was ambulating well, wi thout any significant symptoms, and the patient was discharged home in a much improved condition to continue: 1. Glipizide/metformin 5/500, one tab every day. 1. Simvastatin 20 mg daily. 2. Trazodone 50 mg at bedtime. 3. Pantoprazole 40 mg daily. 4. Aspirin 81 mg daily. 5. Cardizem-CD RSR 120 mg p.o. daily. The patient will be followed in my office in the next 2 weeks. The patient will follow with Dr. Mckenna torrez and get outpatient stress testing. The patient has also been advised to follow up with a gastr oenterologist, as she has a prior history of malignant colonic polyps. She states she will follow u p with MDs in [facility]. Dictated By: BORIS ERNANDEZ MD SR/NTS Conf#: [id number] DID#: [id number]
== END 2016-06-27 17:23 | disposition home or self-care (01) | DRG 310 ==
LOC: E/R 15:40 → MS4 22:03 → OBSVTOIN 06-25 14:57 → PP2 06-26 17:02
PROVIDERS: ADMIT Internal Medicine; ATTEND Internal Medicine
DX: R00.1 Bradycardia, unspecified (principal); E11.8 Type 2 diabetes mellitus with unspecified complications; T44.7X5A Adverse effect of beta-adrenoreceptor antagonists, initial encounter; R55 Syncope and collapse; M85.80 Other specified disorders of bone density and structure, unspecified site; I10 Essential (primary) hypertension; Z87.891 Personal history of nicotine dependence; R51 Headache
CPT/HCPCS: 70450; 71010; 80048; 80053; 80061; 81001; 81003; 82962; 83036; 83735; 84484; 85025; 87086; 93005; 93306; 93880; G0378; J1650; J1815

== ENCOUNTER 2016-10-18 13:29 | Inpatient (IN) | payer MEDICARE, OTHER ==
[~2016-10-18] VITALS: Ht 149.9 cm; Wt 43.2 kg
[~2016-10-18 13:29] MED LIST changes: -ATEN50TA PO; +SIMV20TA2 PO; -ZOC20 PO
[2016-10-18] MEDS ORDERED: DILT120C79 PO (15:25)
[2016-10-18] MEDS ORDERED: GLYB1TAB3 PO (15:27)
[2016-10-18 15:36] LABS: ADD SCAN DIFF NO
[2016-10-18 15:38] LABS: BASOPHILS % 0.3 % (0.0-2.0); EOSINOPHILS # 0.1 10^3/ul (0.0-0.5); EOSINOPHILS % 1.2 % (0.0-7.0); HEMATOCRIT 26.2 % (37.0-47.0); HEMOGLOBIN 8.6 g/dl (12.0-16.0); LYMPHOCYTES # 2.2 10^3/ul (0.8-2.9); LYMPHOCYTES % 20.9 % (15.0-51.0); MEAN CORPUSCULAR HEMOGLOBIN 29.4 pg (29.0-33.0); MEAN CORPUSCULAR HGB CONC 32.8 g/dl (32.0-37.0); MEAN CORPUSCULAR VOLUME 89.4 fl (82.0-101.0); MEAN PLATELET VOLUME 9.5 fl (7.4-10.4); MONOCYTE # 0.8 10^3/ul (0.3-0.9); MONOCYTES % 7.2 % (0.0-11.0); NEUTROPHIL # 7.4 10^3/ul (1.6-7.5); PLATELET COUNT 273 10^3/UL (140-415); RED BLOOD COUNT 2.93 10^6/ul (4.20-5.40); RED CELL DISTRIBUTION WIDTH 15.7 % (11.5-14.5); WHITE BLOOD COUNT 10.5 10^3/ul (4.8-10.8)
--- NOTE | 2016-10-18 15:38 | RADRPT ---
PROCEDURE: XR Chest. CLINICAL INDICATION: Abdominal pain. TECHNIQUE: Single frontal view of the chest was obtained. COMPARISON: Chest x-ray 06/23/2016 08:54 p.m. FINDINGS: The soft tissues are normal. There are degenerative osteophytes in the lower cervical thoracic and upper lumbar spine. The heart is enlarged. The cardiomediastinal silhouette and hilar structures a re normal. The pulmonary vasculature is normal. Bilateral apical pleural scarring is noted.. There are vascular calcifications and ectasia of the thoracic aorta. There is an elliptical calcificatio n in the epigastric region adjacent clips or prior cholecystectomy. The right diaphragm is elevated. No acute infiltrate is identified. The costophrenic angles are normal. IMPRESSION: 1. Cardiomegaly. 2. Atherosclerosis and ectasia of the thoracic aorta. 3. Bilateral apical and parenchymal scarring which may be the result of an inflammatory process suc h as TB. 4. Elevated right diaphragm. RPTAT:AAJJ Physician Evon Date Time Electronically viewed and signed by Clarke Deleon Physician on 10/18/2016 15:37 CHRIS/
[2016-10-18 15:51] LABS: POTASSIUM 4.6 mmol/L (3.5-5.1)
[2016-10-18 15:52] LABS: INR 0.96; PROTIME 12.8 Sec (12.2-14.2)
[2016-10-18 15:53] LABS: CREATININE 0.65 mg/dl (0.44-1.00); PARTIAL THROMBOPLASTIN TIME 29.2 Sec (25.0-35.0)
[2016-10-18 15:54] LABS: ALBUMIN/GLOBULIN RATIO 1.29; BILIRUBIN,INDIRECT 0.2 mg/dl (0-1.1); BILIRUBIN,TOTAL 0.2 mg/dl (0.2-1.3); TOTAL PROTEIN 7.1 g/dl (6.1-8.1)
[2016-10-18 15:55] LABS: CALCIUM 10.2 mg/dl (8.4-10.2)
[2016-10-18 16:06] LABS: TROPONIN-I 0.044 ng/ml (0.00-0.12)
[2016-10-18 16:30] LABS: ADD UMIC YES; URINE BILIRUBIN (Dip) NEGATIVE (NEGATIVE); URINE BLOOD (Dip) NEGATIVE (NEGATIVE); URINE COLOR LT. YELLOW (YELLOW); URINE GLUCOSE (Dip) NEGATIVE (NEGATIVE); URINE KETONES (Dip) NEGATIVE (NEGATIVE); URINE LEUKOCYTE ESTERASE (Dip) TRACE (NEGATIVE); URINE NITRITE (Dip) NEGATIVE (NEGATIVE); URINE TOTAL PROTEIN (Dip) NEGATIVE (NEGATIVE); URINE UROBILINOGEN (Dip) 0.2 E.U./dL (0.1-1.0)
[2016-10-18 16:43] LABS: BACTERIA,URINE FEW; SQUAMOUS EPITHELIAL CELL,UR OCCASIONAL; URINE RBCS NONE SEEN /HPF (0)
[2016-10-18] MEDS ORDERED: SOD CHLORIDE 0.9% 1,000 ML IV ONE (18:30)
[2016-10-18] MEDS ORDERED: ONDANSETRON 4 MG INJ IV PRN (19:00)
[2016-10-18 19:27] VITALS: TEMP 98.1
--- NOTE | 2016-10-18 19:35 | ERA ---
ER Documentation Chief Complaint Date/Time DATE: 10/18/16 TIME: 19:21 Chief Complaint INTERMITTENT SOB X 1 WEEK, LUZ, ABD DISCONFORT HPI This 86-year-old female present to the emergency room for intermittent and increasing shortness of breath for 1 week. She has also had headache and some abdominal discomfort. Denies chest pain and fevers. She has no cough. States that the shortness of breath is worse on exertion. ROS All systems reviewed and are negative except as per history of present illness. Medications Home Meds Reported Medications Glyburide/Metformin HCl (Glucovance 5-500 mg Tablet) 1 Each Tablet, 1 EACH PO BID, TAB 10/18/16 Diltiazem Hcl* (Diltiazem XT) 120 Mg Capsule.sa, 120 MG PO DAILY, #30 CAP 10/18/16 Aspirin (Low Dose Aspirin) 81 Mg Tablet.dr, 81 MG PO DAILY 09/15/14 Lisinopril* (Lisinopril*) 40 Mg Tablet, 40 MG PO DAILY, TAB 09/15/14 Simvastatin (Simvastatin) 20 Mg Tablet, 20 MG PO HS, TAB 09/15/14 Discontinued Reported Medications Glipizide-Metformin (Glipizide-Metformin) 5-500 Tab, 1 TAB PO DAILY, TAB 09/15/14 Pantoprazole* (Protonix*) 40 Mg Tablet.dr, 40 MG PO DAILY, TAB 09/15/14 Trazodone Hcl* (Trazodone Hcl*) 50 Mg Tablet, 50 MG PO HS, TAB 09/15/14 Allergies Allergies: Coded Allergies: sulfamethoxazole (Verified Allergy, Mild, SWOLLEN LIPS/MOUTH 2 DAYS AFTER TAKING MED PER PT, 10/18/16) MD SAID IT COULD BE ALLERGIC RXN TO SAID MEDICINE PER PT trimethoprim (Verified Allergy, Mild, SWOLLEN LIPS/MOUTH 2 DAYS AFTER TAKING MED PER PT, 10/18/16) SAID IT COULD BE ALLERGIC RXN TO SAID MEDICINE PER PT PMhx/Soc History of Surgery: Yes (CATARACT REMOVAL) Anesthesia Reaction: No Hx Neurological Disorder: No Hx Respiratory Disorders: No Hx Cardiac Disorders: Yes (HYPERTENSION, HYPERLIPIDEMIA) Hx Psychiatric Problems: No Hx Miscellaneous Medical Probl: Yes (DM, htn, chronic anemia) Hx Alcohol Use: No Hx Substance Use: No Hx Tobacco Use: No (ABOUT 20 YEARS AGO) Smoking Status: Former smoker Physical Exam Vitals Vital Signs Date Time Temp Pulse Resp B/P Pulse Ox O2 Delivery O2 Flow Rate FiO2 10/18/16 19:27 98.1 65 16 131/65 97 Room Air 10/18/16 17:39 65 16 113/56 97 Room Air 10/18/16 13:36 98.1 70 18 135/63 98 Physical Exam Const: [] Mild distress, appears uncomfortable Head: Atraumatic Eyes: Normal Conjunctiva ENT: Normal External Ears, Nose and Mouth. Neck: Full range of motion..~ No meningismus. Resp: Clear to auscultation bilaterally, occasional mild tachypnea Cardio: Regular rate and rhythm, no murmurs Abd: Soft, non tender, non distended. Normal bowel sounds Skin: No petechiae or rashes Back: No midline or flank tenderness Ext: No cyanosis, or edema Neur: Awake and alert and oriented 3, no focal deficit Psych: Normal Mood and Affect Result Diagram: 10/18/16 1520 10/18/16 1520 Results 24 hrs Laboratory Tests Test 10/18/16 15:20 10/18/16 16:15 White Blood Count 10.510^3/ul Red Blood Count 2.9310^6/ul Hemoglobin 8.6g/dl Hematocrit 26.2% Mean Corpuscular Volume 89.4fl Mean Corpuscular Hemoglobin 29.4pg Mean Corpuscular Hemoglobin Concent 32.8g/dl Red Cell Distribution Width 15.7% Platelet Count 46278^3/UL Mean Platelet Volume 9.5fl Neutrophils % 70.0% Lymphocytes % 20.9% Monocytes % 7.2% Eosinophils % 1.2% Basophils % 0.3% Nucleated Red Blood Cells % 0.0/100WBC Neutrophils # 7.410^3/ul Lymphocytes # 2.210^3/ul Monocytes # 0.810^3/ul Eosinophils # 0.110^3/ul Basophils # 0.010^3/ul Nucleated Red Blood Cells # 0.010^3/ul Prothrombin Time 12.8Sec Prothrombin Time Ratio 1.0 INR International Normalized Ratio 0.96 Activated Partial Thromboplast Time 29.2Sec Sodium Level 134mmol/L Potassium Level 4.6mmol/L Chloride Level 97mmol/L Carbon Dioxide Level 26mmol/L Anion Gap 16 Blood Urea Nitrogen 16mg/dl Creatinine 0.65mg/dl Glucose Level 102mg/dl Lactic Acid Level 1.3mmol/L Calcium Level 10.2mg/dl Total Bilirubin 0.2mg/dl Direct Bilirubin 0.00mg/dl Indirect Bilirubin 0.2mg/dl Aspartate Amino Transf (AST/SGOT) 46IU/L Alanine Aminotransferase (ALT/SGPT) 57IU/L Alkaline Phosphatase 114IU/L Troponin I 0.044ng/ml B-Type Natriuretic Peptide 516PG/ML Total Protein 7.1g/dl Albumin 4.0g/dl Globulin 3.10g/dl Albumin/Globulin Ratio 1.29 Lipase 110U/L Urine Color LT. YELLOW Urine Clarity CLEAR Urine pH 5.5 Urine Specific [place] <=1.005 Urine Ketones NEGATIVE Urine Nitrite NEGATIVE Urine Bilirubin NEGATIVE Urine Urobilinogen 0.2 E.U./dL Urine Leukocyte Esterase TRACE Urine Microscopic RBC NONE SEEN/HPF Urine Microscopic WBC 2-5/HPF Urine Squamous Epithelial Cells OCCASIONAL Urine Bacteria FEW Urine Hemoglobin NEGATIVE Urine Glucose NEGATIVE% Urine Total Protein NEGATIVE Current Medications Medications (Trade) Dose Ordered Sig/Fer Route PRN Reason Start Time Stop Time Status Last Admin Dose Admin Sodium Chloride (NS) 1,000 ml @ 1,000 mls/hr Q1H ONCE IV 10/18/16 18:30 10/18/16 19:29 DC 10/18/16 18:39 Ondansetron HCl (Zofran Inj) 4 mg BRIDGE ORDER PRN IV NAUSEA AND/OR VOMITING 10/18/16 19:00 10/19/16 18:59 Acetaminophen (Tylenol Tab) 650 mg ER BRIDGE PRN PO MILD PAIN/FEVER 10/18/16 19:00 10/19/16 18:59 Procedures/MDM Elderly female with significant drop in hemoglobin from prior visits. Prior baseline was around 12 and she is now dropped 3-1/2 points. I discussed the case with Dr. Chaidez and he remembers the patient had a positive colonoscopy with one malignant polyp out of to that was removed. The patient does not remember any specific dark stools or GI bleeding she currently refuses a rectal exam for Hemoccult, it seems like the most likely reason her LEEP be losing hemoglobin with normal renal function is a colon source. She also has an EKG with changes concerning for ischemia were not present on her prior EKG. Troponin is currently negative and she has no chest pain but I have ordered repeat troponin and CK-MB levels to be trended. She still is symptomatic she will be admitted for further GI and cardiac workup. She has a benign abdominal exam and I believe that endoscopy is likely the correct imaging technique. She also has a mildly elevated BNP and I think an echocardiogram to rule out cardiac cause of her dyspnea is prudent with her advanced age and risk factors. Dr. Hdz and is admitting. EKG interpretation: Normal sinus rhythm rate of 90, normal axis, diffuse T-wave inversions concerning for ischemia that were not present on her EKG done in June. domestic maid interpretation: Normal sinus rhythm without arrhythmia Chest x-ray interpretation: I see no acute process, no pulmonary edema, no widened mediastinum, no pneumothorax, no infiltrates, no fractures Departure Diagnosis: Primary Impression: Acute blood loss anemia Additional Impressions: Dyspnea Elevated brain natriuretic peptide (BNP) level Acute electrocardiogram changes Condition: Serious GUALBERTO ALVES DO October 18, 2016 19:35
[2016-10-18] MEDS: ACETAMINOPHEN 325 MG TAB PO PRN (19:39)
[2016-10-18] MEDS ORDERED: ASPIRIN 325 MG TAB PO ONE (20:00)
[2016-10-18 21:08] VITALS: Ht 149.9 cm; Wt 43.2 kg
[2016-10-18 21:11] VITALS: BP 164/90; RESP 18
[2016-10-18] MEDS ORDERED: TRAZ50TA18 PO (21:28)
[2016-10-18] MEDS ORDERED: CALC600T11 PO (21:30)
[2016-10-18] MEDS ORDERED: SOD CHLORIDE 0.45% 1,000 ML IV SCH (22:00)
[2016-10-18] MEDS ORDERED: GLUCAGON 1 MG INJ IM PRN (22:00)
[2016-10-18] MEDS ORDERED: GLUCOSE GEL 15 GRAM TUBE BUCCAL PRN (22:00)
[2016-10-18] MEDS ORDERED: GLUCOSE GEL 15 GRAM TUBE PO PRN ×2 (22:00)
[2016-10-18] MEDS ORDERED: DEXTROSE 50% 50 ML SYRINGE IV PRN ×2 (22:00)
[2016-10-19] MEDS: ACCU-CHEK XX SCH
[2016-10-19] MEDS: ATORVASTATIN 10 MG TAB PO SCH ×2 (00:17→20:44)
[2016-10-19] MEDS: traZODone 50 MG TAB PO PRN (00:17)
[2016-10-19] MEDS: CALCIUM CARBONATE 1.25 GM TAB PO SCH ×2 (00:26→20:44)
[2016-10-19 00:40] VITALS: BP 106/49; RESP 18
[2016-10-19 03:04] LABS: CK-MB 2.05 ng/ml (0.0-2.4)
[2016-10-19 03:07] LABS: TROPONIN-I 0.046 ng/ml (0.00-0.12)
[2016-10-19] MEDS: PANTOPRAZOLE (EC) 40 MG TAB PO SCH (05:20)
[2016-10-19 06:35] LABS: ADD SCAN DIFF NO
[2016-10-19 06:49] LABS: BASOPHILS % 0.7 % (0.0-2.0); EOSINOPHILS # 0.3 10^3/ul (0.0-0.5); EOSINOPHILS % 5.9 % (0.0-7.0); HEMATOCRIT 23.9 % (37.0-47.0); HEMOGLOBIN 7.7 g/dl (12.0-16.0); LYMPHOCYTES # 1.4 10^3/ul (0.8-2.9); LYMPHOCYTES % 24.8 % (15.0-51.0); MEAN CORPUSCULAR HEMOGLOBIN 29.2 pg (29.0-33.0); MEAN CORPUSCULAR HGB CONC 32.2 g/dl (32.0-37.0); MEAN CORPUSCULAR VOLUME 90.5 fl (82.0-101.0); MEAN PLATELET VOLUME 9.9 fl (7.4-10.4); MONOCYTE # 0.6 10^3/ul (0.3-0.9); NEUTROPHIL # 3.4 10^3/ul (1.6-7.5); NEUTROPHILS % 58.3 % (39.0-77.0); PLATELET COUNT 251 10^3/UL (140-415); RED BLOOD COUNT 2.64 10^6/ul (4.20-5.40); RED CELL DISTRIBUTION WIDTH 15.9 % (11.5-14.5); RETICULOCYTE COUNT % 4.2 % (0.5-1.5); WHITE BLOOD COUNT 5.8 10^3/ul (4.8-10.8)
[2016-10-19 07:14] LABS: ALBUMIN 3.2 g/dl (3.3-4.9); ALBUMIN/GLOBULIN RATIO 1.23; BILIRUBIN,INDIRECT 0.3 mg/dl (0-1.1); BILIRUBIN,TOTAL 0.3 mg/dl (0.2-1.3); CALCIUM 9.5 mg/dl (8.4-10.2); CREATININE 0.61 mg/dl (0.44-1.00); POTASSIUM 4.8 mmol/L (3.5-5.1); TOTAL PROTEIN 5.8 g/dl (6.1-8.1)
[2016-10-19 07:18] LABS: CK-MB 1.82 ng/ml (0.0-2.4)
[2016-10-19 07:21] LABS: TROPONIN-I 0.048 ng/ml (0.00-0.12)
[2016-10-19 07:44] LABS: FERRITIN 11.4 ng/ml (11.1-264.0)
[2016-10-19 07:50] VITALS: BP 165/75; RESP 18
[2016-10-19] MEDS: INSULIN ASPART [NOVOLOG] 3 ML PEN SC SCH ×4 (08:15→20:44)
[2016-10-19] MEDS ORDERED: ASPIRIN (EC) 81 MG TAB PO SCH (09:00)
[2016-10-19] MEDS: LISINOPRIL 20 MG TAB PO SCH (09:08)
[2016-10-19] MEDS: DILTIAZEM (CD) 120 MG CAP PO SCH (09:08)
[2016-10-19] MEDS: ACETAMINOPHEN 325 MG TAB PO PRN (09:49)
[2016-10-19] MEDS ORDERED: FUROSEMIDE 40 MG INJ IV ONE (15:30)
--- NOTE | 2016-10-19 15:56 | RADRPT ---
PROCEDURE: XR Chest. CLINICAL INDICATION: CHF TECHNIQUE: Single frontal chest x-ray. COMPARISON: 10/18/2016 FINDINGS: No acute infiltrate, pleural effusion or pneumothorax is identified. Lungs are mildly hyperinflated , suggesting COPD. Cardiomediastinal silhouette is within normal limits. Aortic atherosclerotic ca lcification is noted. The osseous structures are unremarkable. IMPRESSION: 1. No evidence of acute cardiopulmonary process. 2. Mildly hyperinflated lungs, suggesting COPD. 3. Aortic atherosclerosis. RPTAT: QQ .Hipolito Almendarez MD, MD Date Time Electronically viewed and signed by .Hipolito Almendarez MD, MD on 10/19/2016 15:55 .R/
[2016-10-19 16:00] VITALS: BP 142/65; PULSE 82; RESP 20
[2016-10-19 17:56] VITALS: BP 147/66; RESP 17
--- NOTE | 2016-10-19 18:52 | HP ---
DATE OF ADMISSION: 10/18/2016 CHIEF COMPLAINT AND HISTORY OF PRESENT ILLNESS: The patient is an 86-year-old lady who presents wit h increasing shortness of breath for the past 1 week, had some abdominal discomfort and some mild he adache. Denies any chest pain or palpitations. No change in the bowel habits recently. MEDICATIONS: Include: 1. Glyburide 2. Metformin 5-500 one tablet p.o. b.i.d. 3. Diltiazem 120 mg p.o. daily. 4. Aspirin 81 mg daily. 5. Lisinopril 40 mg p.o. daily. 6. Simvastatin 20 mg p.o. daily. 7. Trazodone 50 mg at bedtime p.r.n. ALLERGIES: SULFA. REVIEW OF SYSTEMS: HEAD: No history of headaches, focal weakness, or numbness. Status post prior syncope worked up in June 2016. Eyes: Prior history of surgery for glaucoma. Denies any blurry vision. ENT: Noncontributory. NECK: No history of thyroid disease. CHEST: The patient was a prior smoker for 20+ years, stopped almost 30 years back. History of incr easing shortness of breath as above. CARDIOVASCULAR: No chest pain or palpitations. History of hyperlipidemia. No history of exertiona l chest pain. Recent shortness of breath but no definite PND. GASTROINTESTINAL: No constipation, diarrhea, change in bowel habits. History of colonoscopy done a bout 6 years prior showed polyps and there is a questionable malignant, and the patient has been adv ised to follow up with GI MD for colonoscopy. The patient has not followed up so far. GENITOURINARY: No dysuria, hematuria, kidney stones. Mammogram 4 years ago was normal. FAMILY HISTORY: Mother had hypertension, of [place] in 50s. No history of breast or colon cancer i n the family. The patient is , has 1 daughter. MUSCULOSKELETAL: History of osteopenia. The patient takes calcium with vitamin D. She gets muscle spasm in her legs, unrelated to exertion. Takes magnesium with improvement of same. PHYSICAL EXAMINATION: GENERAL: The patient is an average-built female who is very pleasant, awake, alert. VITAL SIGNS: Afebrile, blood pressure 165/75, O2 sat is 98% on room air. HEENT: Head normocephalic. Moderate pallor without cyanosis. Tongue is coated, dry. NECK: Supple. No thyromegaly, bruits or lymphadenopathy. CHEST: Revealed a few crackles heard at the bases. HEART: S1, S2 heard with no definite gallops. ABDOMEN: Soft, nontender, no hepatosplenomegaly. EXTREMITIES: No edema. Pedals 2+ bilaterally. Homans sign is negative. NEUROLOGIC: No localizing or lateralizing signs. LABORATORY DATA: Initial WBC count 10.5, hematocrit 26.2, platelet count 273,000. Repeat hematocri t is ____ today. Retic count is 4.2. Sodium 136, potassium 4.8, BUN 13, creatinine 0.61. Serum fe rritin 11.4, magnesium 1.8. UA shows trace leukocyte esterase, few bacteria. PT/INR was 0.96. Ese st x-ray shows bilateral apical and parenchymal scarring, elevated right hemidiaphragm. CEA is 2.5, glucose 111, 126 today. IMPRESSION: 1. Recent shortness of breath, likely has acute asthmatic bronchitis, complicated by severe anemia secondary to gastrointestinal loss. 2. Diabetes mellitus type 2, well controlled. 3. Hypertension. PLAN: Patient has been admitted to the medical floor. We will type and cross for 2 units of packed cells, transfuse, closely monitor for blood loss. Obtain GI consultation, Dr. Back. ADDENDUM: EKG was reviewed, which shows ST-T wave abnormality in the inferior and lateral leads. W e will closely observe the EKG changes and could be related to severe anemia. We will obtain cardio logy consultation if necessary in due course. We will also get a repeat BMP and a repeat chest x-ra y. Give 1 dose of Lasix 20 mg IV push today and a followup x-ray. Dictated By: BORIS ERNANDEZ MD SR/NTS Conf#: [id number] DID#: [id number]
[2016-10-19] MEDS ORDERED: MAGNESIUM SULFATE 2 GM/50 ML 50 ML IVPB ONE (19:00)
[2016-10-19 20:00] VITALS: BP 126/70; RESP 20
--- NOTE | 2016-10-19 20:26 | PN ---
DATE: 10/19/2016 ADDENDUM Repeat EKG was reviewed, which continues to show the flipped T waves in the inferolateral leads. Re peat troponin is pending. Repeat chest x-ray is pending as well. Will transfer the patient to tele metry given the patient's age and the degree of anemia and new EKG changes, to monitor any ongoing c oronary ischemia. Cardiac consultation will be requested in due course. We will also order an echo cardiogram. Dictated By: BORIS ERNANDEZ MD SR/NTS Conf#: [id number] DID#: [id number]
[2016-10-19 20:50] VITALS: PULSE 83
[2016-10-20] VITALS (11 sets, daily range): BP systolic 108–166; BP diastolic 51–73; PULSE 58–89; RESP 17–20
[2016-10-20] MEDS: ACCU-CHEK XX SCH (02:00)
[2016-10-20] MEDS: ACETAMINOPHEN 500 MG TAB PO PRN (02:56)
[2016-10-20] MEDS: PANTOPRAZOLE (EC) 40 MG TAB PO SCH (06:20)
[2016-10-20 07:28] LABS: ADD SCAN DIFF NO
[2016-10-20 07:40] LABS: BASOPHIL # 0.1 10^3/ul (0.0-0.1); BASOPHILS % 0.6 % (0.0-2.0); EOSINOPHILS # 0.2 10^3/ul (0.0-0.5); EOSINOPHILS % 2.2 % (0.0-7.0); HEMATOCRIT 39.7 % (37.0-47.0); LYMPHOCYTES # 1.6 10^3/ul (0.8-2.9); LYMPHOCYTES % 18.9 % (15.0-51.0); MEAN CORPUSCULAR HEMOGLOBIN 28.7 pg (29.0-33.0); MEAN CORPUSCULAR HGB CONC 32.7 g/dl (32.0-37.0); MEAN CORPUSCULAR VOLUME 87.6 fl (82.0-101.0); MEAN PLATELET VOLUME 9.7 fl (7.4-10.4); MONOCYTE # 0.7 10^3/ul (0.3-0.9); MONOCYTES % 7.6 % (0.0-11.0); NEUTROPHIL # 6.1 10^3/ul (1.6-7.5); NEUTROPHILS % 70.5 % (39.0-77.0); PLATELET COUNT 247 10^3/UL (140-415); RED BLOOD COUNT 4.53 10^6/ul (4.20-5.40); RED CELL DISTRIBUTION WIDTH 15.5 % (11.5-14.5); WHITE BLOOD COUNT 8.7 10^3/ul (4.8-10.8)
[2016-10-20 07:59] LABS: CREATININE 0.7 mg/dl (0.44-1.00); MAGNESIUM 2.3 mg/dl (1.7-2.5); POTASSIUM 4.3 mmol/L (3.5-5.1)
[2016-10-20] MEDS: INSULIN ASPART [NOVOLOG] 3 ML PEN SC SCH ×4 (08:00→20:14)
[2016-10-20] MEDS: LISINOPRIL 20 MG TAB PO SCH (09:12)
[2016-10-20] MEDS: DILTIAZEM (CD) 120 MG CAP PO SCH (09:12)
[2016-10-20] MEDS: CEFTRIAXONE 1 GM/50 ML (PMX) 50 ML IVPB SCH (17:18)
[2016-10-20 18:15] LABS: D-DIMER 808.16 ng/ml (<460)
--- NOTE | 2016-10-20 19:03 | PN ---
DATE: SUBJECTIVE: The patient overall feels better. Denies any chest pain or shortness of breath. No co ugh or wheezing. No fever or chills. Mild lower abdominal pain. PHYSICAL EXAMINATION: GENERAL: The patient is in no acute distress. VITAL SIGNS: Temperature 98.2, blood pressure 154/70, O2 sat 98%. HEENT: No pallor, cyanosis. CHEST: Revealed a few crackles at the left base. HEART: S1, S2 heard with no definite gallops. EXTREMITIES: No edema. Homans sign is negative. LABORATORY DATA: WBC count 8.7, hematocrit 39.7, platelet count 247 after 2 units of packed cells. Sodium 134, potassium 4.3, glucose 157. Magnesium 2.3. Troponin 0.5. EKG shows no significant ch halie. Still shows ____ across inferolateral leads. IMPRESSION: 1. Acute gastrointestinal bleed, prior history of query malignant polyp in the colon with anemia, r esolved. 2. Diabetes mellitus type 2, well controlled. 3. Hypertension. 4. Abnormal EKG. No sedation after non-ST elevation myocardial infarction. Troponins negative. D oubt pulmonary embolism. Will obtain an echocardiogram to assess wall motion and for any signs of a cute pulmonary hypertension. Also, check D-dimer level. Will discuss with Dr. Back. Dictated By: BORIS ERNANDEZ MD, SR/JOSE JUAN Conf#: [id number] DID#: [id number]
[2016-10-20] MEDS: CALCIUM CARBONATE 1.25 GM TAB PO SCH (20:14)
[2016-10-20] MEDS: ATORVASTATIN 10 MG TAB PO SCH (20:14)
[2016-10-20] MEDS: traZODone 50 MG TAB PO PRN (22:08)
[2016-10-21] VITALS (16 sets, daily range): BP systolic 119–191; BP diastolic 58–86; PULSE 76–97; RESP 18–20
[2016-10-21] MEDS: ACCU-CHEK XX SCH (01:35)
[2016-10-21] MEDS: PANTOPRAZOLE (EC) 40 MG TAB PO SCH (06:07)
[2016-10-21 06:42] LABS: ADD SCAN DIFF NO
[2016-10-21 06:45] LABS: BASOPHILS % 0.3 % (0.0-2.0); EOSINOPHILS # 0.2 10^3/ul (0.0-0.5); EOSINOPHILS % 1.3 % (0.0-7.0); LYMPHOCYTES # 2.1 10^3/ul (0.8-2.9); LYMPHOCYTES % 13.9 % (15.0-51.0); MEAN CORPUSCULAR HEMOGLOBIN 29.2 pg (29.0-33.0); MEAN CORPUSCULAR HGB CONC 33.3 g/dl (32.0-37.0); MEAN CORPUSCULAR VOLUME 87.6 fl (82.0-101.0); MEAN PLATELET VOLUME 9.4 fl (7.4-10.4); MONOCYTE # 0.8 10^3/ul (0.3-0.9); MONOCYTES % 5.6 % (0.0-11.0); NEUTROPHIL # 11.7 10^3/ul (1.6-7.5); NEUTROPHILS % 78.4 % (39.0-77.0); PLATELET COUNT 251 10^3/UL (140-415); RED BLOOD COUNT 4.45 10^6/ul (4.20-5.40); RED CELL DISTRIBUTION WIDTH 15.6 % (11.5-14.5); WHITE BLOOD COUNT 14.9 10^3/ul (4.8-10.8)
[2016-10-21 07:03] LABS: POTASSIUM 4.5 mmol/L (3.5-5.1)
[2016-10-21 07:05] LABS: CREATININE 0.8 mg/dl (0.44-1.00)
[2016-10-21 07:06] LABS: CALCIUM 9.9 mg/dl (8.4-10.2); CHOL/HDL RATIO 1.6 RATIO; MAGNESIUM 2.1 mg/dl (1.7-2.5)
[2016-10-21] MEDS: INSULIN ASPART [NOVOLOG] 3 ML PEN SC SCH ×4 (07:58→21:00)
[2016-10-21] MEDS: LISINOPRIL 20 MG TAB PO SCH (08:16)
[2016-10-21] MEDS: DILTIAZEM (CD) 120 MG CAP PO SCH (08:16)
--- NOTE | 2016-10-21 10:28 | PN ---
DATE: SUBJECTIVE: The patient has no chest pain or shortness of breath. Overall, feels better. No leg c ramps, no dysuria.: VITAL SIGNS: Afebrile, blood pressure 120/61, O2 sat 99%. HEENT: Head normocephalic. CHEST: Few crackles at left base. HEART: S1, S2 heard with no definite gallops. ABDOMEN: Soft, nontender, no hepatosplenomegaly. EXTREMITIES: No edema. Homans sign is negative. LABORATORY DATA: WBC count 14.9, hematocrit 39. Sodium 137, potassium 4.5, magnesium 2.1. LDL 74. Urine culture pending. D-dimer 808.16. IMPRESSION: 1. Increased D-dimer. Rule out deep venous thrombosis. Pulmonary embolism not ruled out. 2. Leukocytosis, likely secondary to urinary tract infection. 3. Status post gastrointestinal bleed, likely lower gastrointestinal bleed. 4. Anemia, corrected with transfusion. 5. Hypertension. 6. Diabetes mellitus type 2. PLAN: Urine cultures pending, will continue Rocephin for now. Obtain Doppler venous study of lower extremities. After reviewing the echocardiogram, will consider getting a CTA to rule out pulmonary embolism. Case discussed with Dr. Perez. Dictated By: BORIS ERNANDEZ MD, SR/JOSE JUAN Conf#: [id number] DID#: [id number]
--- NOTE | 2016-10-21 10:36 | RADRPT ---
PROCEDURE: US Lower extremity Venous. CLINICAL INDICATION: Bilateral lower extremity edema , shortness of breath TECHNIQUE: Multiple sonographic images of the bilateral lower extremity deep venous system was obt ained utilizing grayscale, color-flow, compressive sonography and doppler imaging with augmentation. The images were reviewed on a PACS workstation. COMPARISON: None. FINDINGS: There is normal compressibility and flow within the bilateral common femoral, femoral , posterior ti bial and popliteal veins. RPTAT: AA IMPRESSION: No sonographic evidence for deep venous thrombosis. .Jose Enrique Santacruz MD, MD Date Time Electronically viewed and signed by .Jose Enrique Santacruz MD, on 10/21/2016 10:35 .S/
--- NOTE | 2016-10-21 14:03 | RADRPT ---
Echocardiogram Report Patient Name: KAROLINA JORDAN Gender: Female Date: 1930 Study Date: 21-Oct-2016 Assistant Hairstylist: [facility] Location: [id number] Ref. Physician: BORIS ERNANDEZ Quality: Adequate Procedures: Transthoracic echocardiogram with complete 2D, M-Mode, and doppler examination. Indications: EKG Changes, T wave invertionson inferolat leads, nl troponin. 2D/M Mode Doppler Measurement Value Normal Ranges Measurement Value Normal Ranges LVIDd 2D 3.1 3.5 - 5.6 cm AV Peak Paresh 1.1 m/sec LVIDs 2D 2.2 2.1 - 4.1 cm AV Peak PG 4.9 mmHg LVPWd 2D 1.3 0.6 - 1.1 cm LVOT Peak Paresh 0.8 m/sec IVSd 2D 1.3 0.6 - 1.1 cm LVOT Peak PG 2.3 mmHg AoR Diam 2D 2.6 2.0 - 3.7 cm MV E Peak Paresh 0.9 m/sec EDV 2D 39.4 cm3 MV A Peak Paresh 1.2 m/sec ESV 2D 11.4 cm3 MV E/A 0.7 LA Dimen 2D 3.5 2.3 - 4.0 cm MV Decel Time 202 msec MV Decel Forrest 4 MV E/A 0.7 Findings Left Ventricle: Normal left ventricular systolic function. Normal left ventricular cavity size. Mild concentric left ventricular hypertrophy. Ejection fraction is visually estimated at 65 %. Tissue Doppler/Mitral Doppler indices are consistent with impaired relaxation (Stage I diastolic dysfunction). Right Ventricle: Normal right ventricular size. Normal right ventricular systolic function. Left Atrium: The left atrium is normal in size. Right Atrium: The right atrium is normal in size. Mitral Valve: Mild mitral annular calcification. Trace mitral regurgitation. Aortic Valve: No significant aortic stenosis or insufficiency. Aortic cusps appear mildly calcified. Trileaflet aortic valve. Tricuspid Valve: Normal appearance of the tricuspid valve. Unable to obtain RVSP due to minimal presence of tricuspid regurgitation. There is trace tricuspid regurgitation. Pulmonic Valve: Pulmonic valve not well visualized. There is mild pulmonic regurgitation. Pericardium: Normal pericardium with no significant pericardial effusion. Aorta: Normal aortic root. IVC: Normal size and normal respiratory collapse consistent with normal right atrial pressure. Conclusions 1.Normal left ventricular systolic function. Normal left ventricular cavity size. Mild concentric left ventricular hypertrophy. Ejection fraction is visually estimated at 65 %. Tissue Doppler/Mitral Doppler indices are consistent with impaired relaxation (Stage I diastolic dysfunction). 2.Normal right ventricular size. Normal right ventricular systolic function. 3.No significant aortic stenosis or insufficiency. Aortic cusps appear mildly calcified. Trileaflet aortic valve. 4.Normal appearance of the tricuspid valve. Unable to obtain RVSP due to minimal presence of tricuspid regurgitation. There is trace tricuspid regurgitation. 5.Normal size and normal respiratory collapse consistent with normal right atrial pressure. 6.Normal pericardium with no significant pericardial effusion. 7.No Vegetation, masses, or thrombi seen. Electronically Signed By: Jerry Hsieh 21-Oct-2016 14:01:58 -0700 Patient Name: KAROLINA JORDAN Study Date: 21-Oct-2016 [id number]
--- NOTE | 2016-10-21 14:23 | RADRPT ---
Vent Rate: 72 bpm RR Interval: 0 msec IN Interval: 204 msec QRS Duration: 92 msec QT Interval: 422 msec QTC Interval: 462 msec P-R-T [place]: 65 - 27 - -66 degrees Normal sinus rhythm T wave abnormality, consider inferior ischemia T wave abnormality, consider anterolateral ischemia Abnormal ECG Electronically Signed By: Joe Mendoza [id number]
--- NOTE | 2016-10-21 14:50 | CONS ---
Date/Time of Note Date/Time of Note DATE: 10/21/16 TIME: 14:36 Assessment/Plan Assessment/Plan Chief Complaint/Hosp Course Impression: Dyspnea- unclear etiology, no e/o ACS with serial neg trop, bnp borderline elevated, may be normal for age. no e/o CHF on exam, and normal lv systolic/ valve fxn on echo. no e/o of pulm htn on echo. could also be related to anemia which is improved post transfusion. - ambulate patient - if cont dyspnea could consider stress testing given non specific ekg changes and cad rf. however if improved post transfusion, could hold off. - d-dimer positive but neg dvt, also no tachypnea/hypoxia/tachycardia to suspect PE - ? other pulm etiology TWI on ekg- non specific change, pt asymptomatic, no echo wma. trop negative - ambulate patient - if recurrent symptoms consider stress testing. Anemia - stable s/p 2 UPRBC tranfusion, stable. unclear etiology HTN- stable - cont lisinopril, dilt DM2 - per primary team Problems: Consultation Date/Type/Reason Admit Date/Time October 21, 2016 at 11:12 Date of Consultation: October 22, 2016 Type of Consultation: Cardiology Reason for Consultation Abnl EKG Referring Provider: OBRIS RENANDEZ MD Hx of Present Illness Ms. Fernandes is a 86 y.o. with h/o of hypertension. Pt reports 1 month of dyspnea. States dyspnea occurs with exertion mostly, when walking further distances gets sob. improved with rest after a few seconds. denies any chest pain/pressure, arm/jaw pain, n/v, dizziness, palpitations associated. Also reports sob at rest at times, again no associated symptoms but lasts a few seconds and resolves. pt states sx are stable, but told her family about sx and brought to [facility]. Pt also reports L arm pain at rest or when using the L arm, improved again after a few seconds. not associated with her sob. she was found to have inf/antlat twi on initial ekg which was new. cxr showed hyperinflated lungs with apical scaring. her vitals have been stable. echo showed no wma and normal LVEF/valve fxn. pt did have anemia on arrival, no report of blood loss. s/p 2uprbc with stable post transfusion blood count. pt states has not been up /out of bed since admission, denies any current sob or pain. denies any fevers, chills, sweats, cough. Constitutional: no complaints Eyes: no complaints ENT: no complaints Respiratory: sob Cardiovascular: negative Gastrointestinal: no complaints Genitourinary: no complaints Musculoskeletal: l arm pain Skin: no complaints Neurologic: no complaints Endocrine: no complaints Lymphatic: no complaints Psychological: nl mood/affect, no complaints Past Medical History DM2 HTN Anemia Colonic Polyps syncope Past Surgical History Past Surgical Hx: no surgical history Family History Significant Family History: other (cad) Social History Alcohol Use: none Smoking Status: Former smoker Drug Use: none Exam/Review of Systems Vital Signs Vitals Vital Signs Date Time Temp Pulse Resp B/P Pulse Ox O2 Delivery O2 Flow Rate FiO2 10/21/16 12:06 77 10/21/16 12:00 98.3 18 119/58 99 10/19/16 16:00 Room Air Intake and Output 10/20/16 10/20/16 10/21/16 15:00 23:00 07:00 Intake Total 850 ml 200 ml Balance 850 ml 200 ml Exam Constitutional: alert, oriented, thin/elderly Psych: nl mood/affect, no complaints Head: normocephalic Eyes: EOMI, nl conjunctiva ENMT: mucosa pink and moist, nl nasal mucosa & septum Neck: non-tender, supple, No jvd Respiratory: clear to auscultation, normal air movement Cardiovascular: nl pulses, regular rate and rhythm, + SOY LUSB No S3, No S4, No diastolic murmur, No edema, No irregular rhythm, No jugular venous distention (JVD), No systolic murmur Gastrointestinal: non-tender, soft Musculoskeletal: nl extremities to inspection Extremities: normal pulses Neurological: PLUMBER HELPER II-XII intact, nl mental status, nl speech, nl strength Results Result Diagram: 10/21/16 0031 10/21/16 0620 Results 24 hrs Laboratory Tests Test 10/20/16 16:20 10/20/16 17:13 10/20/16 20:13 10/21/16 00:31 D-Dimer 808.16 H D-Dimer Comment Bedside Glucose 110 140 White Blood Count 14.9 #H Red Blood Count 4.45 Hemoglobin 13.0 Hematocrit 39.0 Mean Corpuscular Volume 87.6 Mean Corpuscular Hemoglobin 29.2 Mean Corpuscular Hemoglobin Concent 33.3 Red Cell Distribution Width 15.6 H Platelet Count 251 Mean Platelet Volume 9.4 Neutrophils % 78.4 H Lymphocytes % 13.9 L Monocytes % 5.6 Eosinophils % 1.3 Basophils % 0.3 Nucleated Red Blood Cells % 0.0 Neutrophils # 11.7 H Lymphocytes # 2.1 Monocytes # 0.8 Eosinophils # 0.2 Basophils # 0.0 Nucleated Red Blood Cells # 0.0 Test 10/21/16 06:19 10/21/16 06:20 10/21/16 07:48 10/21/16 11:51 Lab Scanned Report BLOOD TRANSFUSION Sodium Level 137 Potassium Level 4.5 Chloride Level 97 Carbon Dioxide Level 27 Anion Gap 18 H Blood Urea Nitrogen 21 H Creatinine 0.80 Glucose Level 137 Calcium Level 9.9 Magnesium Level 2.1 Triglycerides Level 85 Cholesterol Level 121 LDL Cholesterol, Calculated 30 HDL Cholesterol 74 Cholesterol/HDL Ratio 1.6 Bedside Glucose 121 114 Medications Medications Current Medications Pantoprazole (Protonix Tab) 40 mg DAILY@06 PO Last administered on 10/21/16 06 :07; Admin Dose 40 MG; Start 10/19/16 at 06:00 Acetaminophen (Tylenol Tab) 500 mg Q4H PRN PO PAIN AND OR ELEVATED TEMP Last administered on 10/20/16 02:56; Admin Dose 500 MG; Start 10/18/16 at 22:00 Diagnostic Test (Pha) (Accu-Chek) 1 ea 02 XX ; Start 10/19/16 at 02:00 Diltiazem HCl (Cardizem Cd) 120 mg DAILY PO Last administered on 10/21/16 08: 16; Admin Dose 120 MG; Start 10/19/16 at 09:00 Lisinopril (Zestril) 40 mg DAILY PO Last administered on 10/21/16 08:16; Admin Dose 40 MG; Start 10/19/16 at 09:00 Trazodone HCl (Desyrel) 50 mg QHS PRN PO INSOMNIA Last administered on 22:08; Admin Dose 50 MG; Start 10/18/16 at 22:00 Calcium Carbonate (Oyster Shell Calcium) 1.25 gm QHS PO Last administered on 20:14; Admin Dose 1.25 GM; Start 10/18/16 at 22:00 Atorvastatin Calcium (Lipitor) 10 mg DAILY@21 PO Last administered on 20:14; Admin Dose 10 MG; Start 10/18/16 at 21:47 Miscellaneous Information 1 ea NOTE XX ; Start 10/18/16 at 22:00 Glucose (Glutose) 15 gm Q15M PRN PO DECREASED GLUCOSE; Start 10/18/16 at 22:00 Glucose (Glutose) 22.5 gm Q15M PRN PO DECREASED GLUCOSE; Start 10/18/16 at 22: 00 Dextrose (D50w Syringe) 25 ml Q15M PRN IV DECREASED GLUCOSE; Start 10/18/16 at 22:00 Dextrose (D50w Syringe) 50 ml Q15M PRN IV DECREASED GLUCOSE; Start 10/18/16 at 22:00 Glucagon (Glucagen) 1 mg Q15M PRN IM DECREASED GLUCOSE; Start 10/18/16 at 22:00 Glucose 15 gm 15 gm Q15M PRN BUCCAL DECREASED GLUCOSE; Start 10/18/16 at 22:00 Ceftriaxone Sodium (Rocephin) 50 ml @ 100 mls/hr Q24H IVPB Last administered on 10/20/16 17:18; Admin Dose 100 MLS/HR; Start 10/20/16 at 16:30 Procedures Procedures cxr images reviewed per hpi EKG: NSR, TWI ii, iii avf. V2-V6. new compared to old ekg from 06/2016 DEL TRUONG October 21, 2016 14:47
[2016-10-21] MEDS: hydrALAzine 20 MG INJ IV ONE ×2 (16:00→18:00)
[2016-10-21] MEDS: CEFTRIAXONE 1 GM/50 ML (PMX) 50 ML IVPB SCH (17:09)
[2016-10-21] MEDS: ACETAMINOPHEN 500 MG TAB PO PRN ×2 (18:38→21:35)
--- NOTE | 2016-10-21 19:08 | CONS ---
Date/Time of Note Date/Time of Note DATE: 10/21/16 TIME: 19:07 Assessment/Plan Assessment/Plan Additional Assessment/Plan 1. Shortness of breath resolved 2. Positive stool guaiac 3. Anemia 4. personal history of colon polyp, last colonoscopy almost 20 years ago. Plan Patient definitely needs colonoscopy. Discussed with the patient and has agreed for the procedure. We will schedule on Friday Consultation Date/Type/Reason Admit Date/Time October 21, 2016 at 11:12 Initial Consult Date 10/22/16 Type of Consultation: Cardiology Referring Provider: BORIS ERNANDEZ MD Exam/Review of Systems Vital Signs Vitals Vital Signs Date Time Temp Pulse Resp B/P Pulse Ox O2 Delivery O2 Flow Rate FiO2 10/21/16 18:40 97 132/67 10/21/16 16:20 18 10/21/16 16:17 98.3 97 10/19/16 16:00 Room Air Intake and Output 10/20/16 10/20/16 10/21/16 15:00 23:00 07:00 Intake Total 850 ml 200 ml Balance 850 ml 200 ml Exam Constitutional: alert, oriented, well developed Psych: nl mood/affect, no complaints Head: atraumatic, normocephalic Eyes: EOMI, PERRL, nl conjunctiva, nl lids, nl sclera ENMT: nl external ears & nose, nl lips & teeth, nl nasal mucosa & septum Neck: non-tender, supple Respiratory: clear to auscultation, normal air movement Cardiovascular: nl pulses, regular rate and rhythm Gastrointestinal: nl liver, spleen, non-tender, soft Musculoskeletal: nl extremities to inspection, nl gait and stance Extremities: normal pulses Neurological: AURIST II-XII intact, nl mental status, nl speech, nl strength Skin: nl turgor, No rash or lesions Lymph: nl lymph nodes Results Result Diagram: 10/21/16 0031 10/21/16 0620 Results 24 hrs Laboratory Tests Test 10/20/16 20:13 10/21/16 00:31 10/21/16 06:19 10/21/16 06:20 Bedside Glucose 140 White Blood Count 14.9 #H Red Blood Count 4.45 Hemoglobin 13.0 Hematocrit 39.0 Mean Corpuscular Volume 87.6 Mean Corpuscular Hemoglobin 29.2 Mean Corpuscular Hemoglobin Concent 33.3 Red Cell Distribution Width 15.6 H Platelet Count 251 Mean Platelet Volume 9.4 Neutrophils % 78.4 H Lymphocytes % 13.9 L Monocytes % 5.6 Eosinophils % 1.3 Basophils % 0.3 Nucleated Red Blood Cells % 0.0 Neutrophils # 11.7 H Lymphocytes # 2.1 Monocytes # 0.8 Eosinophils # 0.2 Basophils # 0.0 Nucleated Red Blood Cells # 0.0 Lab Scanned Report BLOOD TRANSFUSION Sodium Level 137 Potassium Level 4.5 Chloride Level 97 Carbon Dioxide Level 27 Anion Gap 18 H Blood Urea Nitrogen 21 H Creatinine 0.80 Glucose Level 137 Calcium Level 9.9 Magnesium Level 2.1 Triglycerides Level 85 Cholesterol Level 121 LDL Cholesterol, Calculated 30 HDL Cholesterol 74 Cholesterol/HDL Ratio 1.6 Test 10/21/16 07:48 10/21/16 11:51 10/21/16 17:05 Bedside Glucose 121 114 112 Medications Medications Current Medications Pantoprazole (Protonix Tab) 40 mg DAILY@06 PO Last administered on 10/21/16 06 :07; Admin Dose 40 MG; Start 10/19/16 at 06:00 Acetaminophen (Tylenol Tab) 500 mg Q4H PRN PO PAIN AND OR ELEVATED TEMP Last administered on 10/21/16 18:38; Admin Dose 500 MG; Start 10/18/16 at 22:00 Diagnostic Test (Pha) (Accu-Chek) 1 ea 02 XX ; Start 10/19/16 at 02:00 Diltiazem HCl (Cardizem Cd) 120 mg DAILY PO Last administered on 10/21/16 08: 16; Admin Dose 120 MG; Start 10/19/16 at 09:00 Lisinopril (Zestril) 40 mg DAILY PO Last administered on 10/21/16 08:16; Admin Dose 40 MG; Start 10/19/16 at 09:00 Trazodone HCl (Desyrel) 50 mg QHS PRN PO INSOMNIA Last administered on 22:08; Admin Dose 50 MG; Start 10/18/16 at 22:00 Calcium Carbonate (Oyster Shell Calcium) 1.25 gm QHS PO Last administered on 20:14; Admin Dose 1.25 GM; Start 10/18/16 at 22:00 Atorvastatin Calcium (Lipitor) 10 mg DAILY@21 PO Last administered on 20:14; Admin Dose 10 MG; Start 10/18/16 at 21:47 Miscellaneous Information 1 ea NOTE XX ; Start 10/18/16 at 22:00 Glucose (Glutose) 15 gm Q15M PRN PO DECREASED GLUCOSE; Start 10/18/16 at 22:00 Glucose (Glutose) 22.5 gm Q15M PRN PO DECREASED GLUCOSE; Start 10/18/16 at 22: 00 Dextrose (D50w Syringe) 25 ml Q15M PRN IV DECREASED GLUCOSE; Start 10/18/16 at 22:00 Dextrose (D50w Syringe) 50 ml Q15M PRN IV DECREASED GLUCOSE; Start 10/18/16 at 22:00 Glucagon (Glucagen) 1 mg Q15M PRN IM DECREASED GLUCOSE; Start 10/18/16 at 22:00 Glucose 15 gm 15 gm Q15M PRN BUCCAL DECREASED GLUCOSE; Start 10/18/16 at 22:00 Ceftriaxone Sodium (Rocephin) 50 ml @ 100 mls/hr Q24H IVPB Last administered on 10/21/16 17:09; Admin Dose 100 MLS/HR; Start 10/20/16 at 16:30 JENNIFER ROLAND MD October 21, 2016 19:08
[2016-10-21] MEDS: CALCIUM CARBONATE 1.25 GM TAB PO SCH (21:35)
[2016-10-21] MEDS: ATORVASTATIN 10 MG TAB PO SCH (21:35)
[2016-10-21] MEDS: traZODone 50 MG TAB PO PRN (21:47)
[2016-10-22] VITALS (11 sets, daily range): BP systolic 115–151; BP diastolic 58–76; PULSE 77–88; RESP 18
[2016-10-22] MEDS: ACCU-CHEK XX SCH (02:00)
[2016-10-22] MEDS: PANTOPRAZOLE (EC) 40 MG TAB PO SCH (06:22)
[2016-10-22 06:40] LABS: ADD SCAN DIFF NO
[2016-10-22 06:46] LABS: BASOPHILS % 0.2 % (0.0-2.0); EOSINOPHILS # 0.3 10^3/ul (0.0-0.5); HEMATOCRIT 37.1 % (37.0-47.0); HEMOGLOBIN 12.3 g/dl (12.0-16.0); LYMPHOCYTES # 1.6 10^3/ul (0.8-2.9); LYMPHOCYTES % 12.2 % (15.0-51.0); MEAN CORPUSCULAR HEMOGLOBIN 29.1 pg (29.0-33.0); MEAN CORPUSCULAR HGB CONC 33.2 g/dl (32.0-37.0); MEAN CORPUSCULAR VOLUME 87.9 fl (82.0-101.0); MEAN PLATELET VOLUME 9.6 fl (7.4-10.4); MONOCYTE # 0.8 10^3/ul (0.3-0.9); MONOCYTES % 6.3 % (0.0-11.0); NEUTROPHIL # 10.5 10^3/ul (1.6-7.5); NEUTROPHILS % 78.8 % (39.0-77.0); PLATELET COUNT 250 10^3/UL (140-415); RED BLOOD COUNT 4.22 10^6/ul (4.20-5.40); RED CELL DISTRIBUTION WIDTH 15.2 % (11.5-14.5); WHITE BLOOD COUNT 13.3 10^3/ul (4.8-10.8)
[2016-10-22 07:15] LABS: CALCIUM 9.9 mg/dl (8.4-10.2); CREATININE 0.66 mg/dl (0.44-1.00); POTASSIUM 4.6 mmol/L (3.5-5.1)
--- NOTE | 2016-10-22 07:31 | CONS ---
DATE OF ADMISSION: 10/21/2016 DATE OF CONSULTATION: 10/21/2016 TYPE OF CONSULTATION: Gastroenterology. HISTORY OF PRESENT ILLNESS: The patient is an 86-year-old female, presented to the ER with shortnes s of breath of 1 week duration. She also complains of abdominal pain, mild discomfort. No gross GI bleeding, no chest pain, no or RELISH BLENDER problem. The patient had a colon polyp removed almost 15 to 20 years ago, and it was premalignant. GI consult was called in for surveillance of colon polyp. REVIEW OF SYSTEMS: Negative. ALLERGIES: SULFA. FAMILY HISTORY: Mother had hypertension. PHYSICAL EXAMINATION: GENERAL: Looks good for her age. VITAL SIGNS: Stable. HEENT: Unremarkable. NECK: Supple. No thyromegaly, no lymphadenopathy. CARDIOVASCULAR: No murmur, gallop or click. LUNGS: Clear. ABDOMEN: Benign. EXTREMITIES: No edema. CENTRAL NERVOUS SYSTEM: Grossly within normal limits. IMPRESSION: 1. Shortness of breath, rule out congestive heart failure, rule out secondary to anemia. 2. Diabetes mellitus. 3. Hypertension. 4. Personal history of colon polyp. 5. Microcytic hypochromic anemia. PLAN: Stabilize the cardiac status, once is stable will proceed with colonoscopy. Discussed with t he patient and has agreed. Dictated By: JENNIFER VERGARA/JOSE JUAN Conf#: [id number] DID#: [id number]
[2016-10-22] MEDS: INSULIN ASPART [NOVOLOG] 3 ML PEN SC SCH ×4 (08:00→21:00)
[2016-10-22] MEDS: DILTIAZEM (CD) 120 MG CAP PO SCH (09:03)
[2016-10-22] MEDS: LISINOPRIL 20 MG TAB PO SCH (09:03)
--- NOTE | 2016-10-22 10:52 | PN ---
DATE: SUBJECTIVE: The patient denies any chest pain or shortness of breath. Ambulating well, no leg cram ps, no abdominal pain. PHYSICAL EXAMINATION: VITAL SIGNS: Temperature 97.4, blood pressure ____/58, O2 sats 96% on room air. HEENT: Head normocephalic. No pallor, cyanosis, or icterus. CHEST: Clear. ABDOMEN: Soft, nontender, no hepatosplenomegaly. EXTREMITIES: No edema. Homans negative. LABORATORY DATA: WBC count is 13.3. Hematocrit 37.1, potassium 4.6, magnesium 2.0. Glucose 124. Dr. Hsieh's cardiology consultation and recommendations greatly appreciated. IMPRESSION: 1. Leukocytosis secondary to likely urinary tract infection. Urine cultures pending. 2. Status post gastrointestinal bleed. For gastrointestinal workup per Dr. Back. 3. Increased D-dimer. Lower extremity Doppler study negative for deep vein thrombosis. Echocardio gram does not show any right heart strain. 4. T-wave abnormalities, nonspecific. No evidence of acute myocardial infarction. 5. Diabetes mellitus type 2, well controlled. PLAN: Proceed with the GI workup per Dr. Back, increase ambulation and await urine culture result s and reevaluation of antibiotics. Dictated By: BORIS ERNANDEZ MD, SR/JOSE JUAN Conf#: [id number] DID#: [id number]
--- NOTE | 2016-10-22 11:47 | CONS ---
Date/Time of Note Date/Time of Note DATE: 10/22/16 TIME: 11:46 Assessment/Plan Assessment/Plan Additional Assessment/Plan Additional Assessment/Plan 1. Shortness of breath resolved 2. Positive stool guaiac 3. Anemia 4. personal history of colon polyp, last colonoscopy almost 20 years ago. Plan Patient definitely needs colonoscopy. Discussed with the patient and has agreed for the procedure. We will schedule on Friday DVT study negative Consultation Date/Type/Reason Admit Date/Time October 21, 2016 at 11:12 Initial Consult Date 10/22/16 Type of Consultation: Cardiology Referring Provider: BORIS ERNANDEZ MD 24 HR Interval Summary Constitutional: improved, no complaints Exam/Review of Systems Vital Signs Vitals Vital Signs Date Time Temp Pulse Resp B/P Pulse Ox O2 Delivery O2 Flow Rate FiO2 10/22/16 11:41 97.9 79 18 134/63 97 10/19/16 16:00 Room Air Intake and Output 10/21/16 10/21/16 10/22/16 14:59 22:59 06:59 Intake Total 500 ml 350 ml Balance 500 ml 350 ml Exam Constitutional: alert, oriented, well developed Psych: nl mood/affect, no complaints Head: atraumatic, normocephalic Eyes: EOMI, PERRL, nl conjunctiva, nl lids, nl sclera ENMT: nl external ears & nose, nl lips & teeth, nl nasal mucosa & septum Neck: non-tender, supple Respiratory: clear to auscultation, normal air movement Cardiovascular: nl pulses, regular rate and rhythm Gastrointestinal: nl liver, spleen, non-tender, soft Musculoskeletal: nl extremities to inspection, nl gait and stance Extremities: normal pulses Neurological: PROJECT DEVELOPMENT COORDINATOR II-XII intact, nl mental status, nl speech, nl strength Skin: nl turgor, No rash or lesions Lymph: nl lymph nodes Results Result Diagram: 10/22/16 0554 10/22/16 0554 Results 24 hrs Laboratory Tests Test 10/21/16 11:51 10/21/16 17:05 10/21/16 21:37 10/22/16 05:54 Bedside Glucose 114 112 142 White Blood Count 13.3 H Red Blood Count 4.22 Hemoglobin 12.3 Hematocrit 37.1 Mean Corpuscular Volume 87.9 Mean Corpuscular Hemoglobin 29.1 Mean Corpuscular Hemoglobin Concent 33.2 Red Cell Distribution Width 15.2 H Platelet Count 250 Mean Platelet Volume 9.6 Neutrophils % 78.8 H Lymphocytes % 12.2 L Monocytes % 6.3 Eosinophils % 2.0 Basophils % 0.2 Nucleated Red Blood Cells % 0.0 Neutrophils # 10.5 H Lymphocytes # 1.6 Monocytes # 0.8 Eosinophils # 0.3 Basophils # 0.0 Nucleated Red Blood Cells # 0.0 Sodium Level 135 Potassium Level 4.6 Chloride Level 101 Carbon Dioxide Level 26 Anion Gap 13 Blood Urea Nitrogen 23 H Creatinine 0.66 Glucose Level 136 Calcium Level 9.9 Magnesium Level 2.0 Test 10/22/16 07:59 Bedside Glucose 124 Medications Medications Current Medications Pantoprazole (Protonix Tab) 40 mg DAILY@06 PO Last administered on 10/22/16 06 :22; Admin Dose 40 MG; Start 10/19/16 at 06:00 Acetaminophen (Tylenol Tab) 500 mg Q4H PRN PO PAIN AND OR ELEVATED TEMP Last administered on 10/21/16 21:35; Admin Dose 500 MG; Start 10/18/16 at 22:00 Diagnostic Test (Pha) (Accu-Chek) 1 ea 02 XX ; Start 10/19/16 at 02:00 Diltiazem HCl (Cardizem Cd) 120 mg DAILY PO Last administered on 10/22/16 09: 03; Admin Dose 120 MG; Start 10/19/16 at 09:00 Lisinopril (Zestril) 40 mg DAILY PO Last administered on 10/22/16 09:03; Admin Dose 40 MG; Start 10/19/16 at 09:00 Trazodone HCl (Desyrel) 50 mg QHS PRN PO INSOMNIA Last administered on 21:47; Admin Dose 50 MG; Start 10/18/16 at 22:00 Calcium Carbonate (Oyster Shell Calcium) 1.25 gm QHS PO Last administered on 21:35; Admin Dose 1.25 GM; Start 10/18/16 at 22:00 Atorvastatin Calcium (Lipitor) 10 mg DAILY@21 PO Last administered on 21:35; Admin Dose 10 MG; Start 10/18/16 at 21:47 Miscellaneous Information 1 ea NOTE XX ; Start 10/18/16 at 22:00 Glucose (Glutose) 15 gm Q15M PRN PO DECREASED GLUCOSE; Start 10/18/16 at 22:00 Glucose (Glutose) 22.5 gm Q15M PRN PO DECREASED GLUCOSE; Start 10/18/16 at 22: 00 Dextrose (D50w Syringe) 25 ml Q15M PRN IV DECREASED GLUCOSE; Start 10/18/16 at 22:00 Dextrose (D50w Syringe) 50 ml Q15M PRN IV DECREASED GLUCOSE; Start 10/18/16 at 22:00 Glucagon (Glucagen) 1 mg Q15M PRN IM DECREASED GLUCOSE; Start 10/18/16 at 22:00 Glucose 15 gm 15 gm Q15M PRN BUCCAL DECREASED GLUCOSE; Start 10/18/16 at 22:00 Ceftriaxone Sodium (Rocephin) 50 ml @ 100 mls/hr Q24H IVPB Last administered on 10/21/16t 17:09; Admin Dose 100 MLS/HR; Start 10/20/16 at 16:30 Bisacodyl (Dulcolax) 10 mg ONCE ONCE PO ; Start 10/22/16 at 12:00; Stop at 12:01 Polyethylene Glycol/ Electrolytes (Golytely) 2,000 ml ONCE ONCE PO ; Start at 15:00; Stop 10/22/16 at 15:01 JENNIFER ROLAND MD October 22, 2016 11:47
[2016-10-22] MEDS ORDERED: BISACODYL (EC) 5 MG TAB PO ONE (12:00)
[2016-10-22] MEDS ORDERED: PEG/ELECTROLYTES 4L BTL PO ONE ×2 (15:00→19:00)
[2016-10-22] MEDS: CEFTRIAXONE 1 GM/50 ML (PMX) 50 ML IVPB SCH (16:35)
[2016-10-22] MEDS: traZODone 50 MG TAB PO PRN (20:53)
[2016-10-22] MEDS: CALCIUM CARBONATE 1.25 GM TAB PO SCH (20:53)
[2016-10-22] MEDS: ATORVASTATIN 10 MG TAB PO SCH (20:53)
[2016-10-22] MEDS ORDERED: VITAMIN A & D 5 GM OINT PACKET TOP ONE (20:58)
[2016-10-22] MEDS: ACETAMINOPHEN 500 MG TAB PO PRN (21:56)
[2016-10-23] VITALS (20 sets, daily range): BP systolic 119–166; BP diastolic 65–75; PULSE 68–102; RESP 14–25
[2016-10-23] MEDS: ACCU-CHEK XX SCH (02:00)
[2016-10-23] MEDS: PANTOPRAZOLE (EC) 40 MG TAB PO SCH (06:00)
[2016-10-23] MEDS ORDERED: PROPOFOL 200 MG INJ ONE (07:00)
[2016-10-23] MEDS ORDERED: LIDOCAINE 2% (SDV) 5 ML INJ ONE (07:00)
[2016-10-23 07:29] LABS: ADD SCAN DIFF NO
[2016-10-23 07:38] LABS: BASOPHILS % 0.5 % (0.0-2.0); EOSINOPHILS # 0.2 10^3/ul (0.0-0.5); EOSINOPHILS % 4.3 % (0.0-7.0); HEMATOCRIT 38.1 % (37.0-47.0); HEMOGLOBIN 12.4 g/dl (12.0-16.0); LYMPHOCYTES % 17.6 % (15.0-51.0); MEAN CORPUSCULAR HEMOGLOBIN 28.8 pg (29.0-33.0); MEAN CORPUSCULAR HGB CONC 32.5 g/dl (32.0-37.0); MEAN CORPUSCULAR VOLUME 88.6 fl (82.0-101.0); MEAN PLATELET VOLUME 9.7 fl (7.4-10.4); MONOCYTE # 0.5 10^3/ul (0.3-0.9); NEUTROPHIL # 3.9 10^3/ul (1.6-7.5); NEUTROPHILS % 69.2 % (39.0-77.0); PLATELET COUNT 245 10^3/UL (140-415); RED CELL DISTRIBUTION WIDTH 14.9 % (11.5-14.5); WHITE BLOOD COUNT 5.6 10^3/ul (4.8-10.8)
[2016-10-23 07:48] LABS: INR 1.01; PROTIME 13.3 Sec (12.2-14.2)
[2016-10-23 07:49] LABS: PARTIAL THROMBOPLASTIN TIME 27.6 Sec (25.0-35.0)
[2016-10-23 08:00] LABS: CALCIUM 9.7 mg/dl (8.4-10.2); CREATININE 0.6 mg/dl (0.44-1.00)
[2016-10-23] MEDS: INSULIN ASPART [NOVOLOG] 3 ML PEN SC SCH ×4 (08:00→20:33)
[2016-10-23] MEDS: LISINOPRIL 20 MG TAB PO SCH (09:17)
[2016-10-23] MEDS: DILTIAZEM (CD) 120 MG CAP PO SCH (09:17)
--- NOTE | 2016-10-23 11:27 | CONS ---
Date/Time of Note Date/Time of Note DATE: 10/23/16 TIME: 11:24 Assessment/Plan Assessment/Plan Chief Complaint/Hosp Course Impression: Dyspnea- unclear etiology, no e/o ACS with serial neg trop, bnp borderline elevated, may be normal for age. no e/o CHF on exam, and normal lv systolic/ valve fxn on echo. no e/o of pulm htn on echo. could also be related to anemia which is improved post transfusion. - if recurrent symptoms, could consider stress testing given non specific ekg changes and cad rf. - improved with transfusion, anemia w/u pending. TWI on ekg- non specific change, - as above Anemia - stable s/p 2 UPRBC tranfusion, stable. unclear etiology gi eval pending HTN- stable - cont lisinopril, dilt DM2 - per primary team Problems: Consultation Date/Type/Reason Admit Date/Time October 21, 2016 at 11:12 Initial Consult Date 10/22/16 Type of Consultation: Cardiology Referring Provider: BORIS ERNANDEZ MD 24 HR Interval Summary Free Text/Dictation no acute events. states sob resolved. hgb stable, denies bleeding. plan for endoscopy today by GI Detailed Summary Eyes: no complaints ENT: no complaints Respiratory: no complaints Cardiovascular: no complaints Gastrointestinal: no complaints Exam/Review of Systems Vital Signs Vitals Vital Signs Date Time Temp Pulse Resp B/P Pulse Ox O2 Delivery O2 Flow Rate FiO2 10/23/16 08:34 76 10/23/16 07:42 98.0 18 148/65 98 10/19/16 16:00 Room Air Intake and Output 10/22/16 10/22/16 10/23/16 15:00 23:00 07:00 Intake Total 2550 ml Balance 2550 ml Exam Constitutional: alert, oriented, thin/elderly Psych: nl mood/affect, no complaints Head: normocephalic Eyes: EOMI, nl conjunctiva ENMT: mucosa pink and moist, nl nasal mucosa & septum Neck: non-tender, supple, No jvd Respiratory: clear to auscultation, normal air movement Cardiovascular: nl pulses, regular rate and rhythm, + SOY LUSB No S3, No S4, No diastolic murmur, No edema, No irregular rhythm, No jugular venous distention (JVD), No systolic murmur Gastrointestinal: non-tender, soft Musculoskeletal: nl extremities to inspection Extremities: normal pulses Neurological: ELECTRIC TRAIN DRIVER II-XII intact, nl mental status, nl speech, nl strength Results Result Diagram: 10/23/16 0650 10/23/16 0650 Results 24 hrs Laboratory Tests Test 10/22/16 12:18 10/22/16 17:04 10/22/16 21:01 10/23/16 06:50 Bedside Glucose 100 97 170 White Blood Count 5.6 # Red Blood Count 4.30 Hemoglobin 12.4 Hematocrit 38.1 Mean Corpuscular Volume 88.6 Mean Corpuscular Hemoglobin 28.8 L Mean Corpuscular Hemoglobin Concent 32.5 Red Cell Distribution Width 14.9 H Platelet Count 245 Mean Platelet Volume 9.7 Neutrophils % 69.2 Lymphocytes % 17.6 Monocytes % 8.0 Eosinophils % 4.3 Basophils % 0.5 Nucleated Red Blood Cells % 0.0 Neutrophils # 3.9 Lymphocytes # 1.0 Monocytes # 0.5 Eosinophils # 0.2 Basophils # 0.0 Nucleated Red Blood Cells # 0.0 Prothrombin Time 13.3 Prothrombin Time Ratio 1.0 INR International Normalized Ratio 1.01 Activated Partial Thromboplast Time 27.6 Sodium Level 139 Potassium Level 4.0 Chloride Level 102 Carbon Dioxide Level 28 Anion Gap 13 Blood Urea Nitrogen 14 # Creatinine 0.60 Glucose Level 161 Calcium Level 9.7 Test 10/23/16 08:23 Bedside Glucose 124 Medications Medications Current Medications Pantoprazole (Protonix Tab) 40 mg DAILY@06 PO Last administered on 10/22/16 06 :22; Admin Dose 40 MG; Start 10/19/16 at 06:00 Acetaminophen (Tylenol Tab) 500 mg Q4H PRN PO PAIN AND OR ELEVATED TEMP Last administered on 10/22/16 21:56; Admin Dose 500 MG; Start 10/18/16 at 22:00 Diagnostic Test (Pha) (Accu-Chek) 1 ea 02 XX ; Start 10/19/16 at 02:00 Diltiazem HCl (Cardizem Cd) 120 mg DAILY PO Last administered on 10/23/16 09: 17; Admin Dose 120 MG; Start 10/19/16 at 09:00 Lisinopril (Zestril) 40 mg DAILY PO Last administered on 10/23/16 09:17; Admin Dose 40 MG; Start 10/19/16 at 09:00 Trazodone HCl (Desyrel) 50 mg QHS PRN PO INSOMNIA Last administered on 20:53; Admin Dose 50 MG; Start 10/18/16 at 22:00 Calcium Carbonate (Oyster Shell Calcium) 1.25 gm QHS PO Last administered on 20:53; Admin Dose 1.25 GM; Start 10/18/16 at 22:00 Atorvastatin Calcium (Lipitor) 10 mg DAILY@21 PO Last administered on 20:53; Admin Dose 10 MG; Start 10/18/16 at 21:47 Miscellaneous Information 1 ea NOTE XX ; Start 10/18/16 at 22:00 Glucose (Glutose) 15 gm Q15M PRN PO DECREASED GLUCOSE; Start 10/18/16 at 22:00 Glucose (Glutose) 22.5 gm Q15M PRN PO DECREASED GLUCOSE; Start 10/18/16 at 22: 00 Dextrose (D50w Syringe) 25 ml Q15M PRN IV DECREASED GLUCOSE; Start 10/18/16 at 22:00 Dextrose (D50w Syringe) 50 ml Q15M PRN IV DECREASED GLUCOSE; Start 10/18/16 at 22:00 Glucagon (Glucagen) 1 mg Q15M PRN IM DECREASED GLUCOSE; Start 10/18/16 at 22:00 Glucose 15 gm 15 gm Q15M PRN BUCCAL DECREASED GLUCOSE; Start 10/18/16 at 22:00 Ceftriaxone Sodium (Rocephin) 50 ml @ 100 mls/hr Q24H IVPB Last administered on 10/22/16 16:35; Admin Dose 100 MLS/HR; Start 10/20/16 at 16:30 Procedures Procedures venous u/s images reviewed, no dvt tele reviewed: DEL YO October 23, 2016 11:27
--- NOTE | 2016-10-23 13:52 | GILP ---
DATE OF PROCEDURE: PROCEDURE: Esophagogastroduodenoscopy with biopsy and colonoscopy. SURGEON: Jennifer Roland MD INDICATION: An 86-year-old female undergoing this procedure for severe anemia requiring blood trans fusion and positive stool guaiac. The risk of the procedure, related and unrelated complications, a nesthetic risks, alternatives discussed, informed consent was obtained. DESCRIPTION OF PROCEDURE: The patient was brought to the GI lab, sedated by the anesthesiologist. After optimal sedation, scope was passed with much ease into the esophagus, advanced further down in to stomach and finally into the duodenum. Duodenal bulb revealed acute duodenal ulcer, the crater s ize of 2 cm. Second part was within normal limits. No active bleeding or altered blood was seen. No sentinel clot identified. Stomach mucosa revealed gastritis. Multiple biopsies obtained t o rule out H. pylori infection. Retroversion was normal. Z-line also was normal. It was at 35 cm. Scope was then removed with good patient tolerance. IMPRESSION: 1. Normal esophagus. 2. Normal Z-line at 35 cm. 3. Erosive gastritis. 4. Acute duodenal ulcer which might be the cause of bleeding. PLAN: To continue PPI for at least 6 to 8 weeks. Review histopathology for H. pylori infection. COLONOSCOPY: The patient was turned around, scope was passed with much ease into the rectum, advanc ed through sigmoid, descending, transverse colon all the way into the cecum. Cecum was 80% to 90% o f visualized. Rest of it was filled with stool. While coming out, mucosa thoroughly inspected. No growth seen. No polyp identified. Diverticulum seen in the rectum. Rest of the colon was normal. IMPRESSION: 1. Normal finding all the way into cecum. 2. Solitary diverticulum in the rectum. 3. No polyps seen. PLAN: Continue iron tablet and monitor H and H closely. Dictated By: JENNIFER ROLAND MD PJ/NTS Conf#: [id number] DID#: [id number] CC: JENNIFER ROLAND MD; BORIS ERNANDEZ MD;*EndCC*
[2016-10-23] MEDS: CEFTRIAXONE 1 GM/50 ML (PMX) 50 ML IVPB SCH (17:19)
[2016-10-23] MEDS: ATORVASTATIN 10 MG TAB PO SCH (20:31)
[2016-10-23] MEDS: CALCIUM CARBONATE 1.25 GM TAB PO SCH (20:31)
--- NOTE | 2016-10-23 21:23 | PN ---
DATE: 10/23/2016 SUBJECTIVE: The patient has had a esophagogastroduodenoscopy with biopsy and colonoscopy. Findings noted were acute duodenal ulcer as the cause of bleeding. GENERAL: The patient awake. VITAL SIGNS: Temperature 98.3, blood pressure ____, O2 sat 96% room air. LUNGS: Clinically clear. HEART: S1, S2 heard with no ____ gallops. EXTREMITIES: No edema. LABORATORY DATA: WBC count 5.6, hematocrit 38.1, potassium 4.0, calcium 9.7. IMPRESSION: 1. Acute gastrointestinal bleed secondary to duodenal ulcer. 2. ____EKG with no evidence of acute myocardial infarction. 3. Anemia, status post 2 units of blood transfusion with improvement. 4. Hypertension. 5. Diabetes mellitus type 2. PLAN: Will observe overnight and if the patient is stable, will discharge in a.m. if it is okay wit h Dr. Back and Dr. Perez. Dictated By: BORIS ERNANDEZ MD, SR/JOSE JUAN Conf#: [id number] DID#: [id number]
[2016-10-24 00:42] VITALS: PULSE 65
[2016-10-24] MEDS: ACCU-CHEK XX SCH (02:00)
[2016-10-24 03:50] VITALS: BP 120/57; RESP 19
[2016-10-24 04:00] VITALS: PULSE 69
[2016-10-24] MEDS: PANTOPRAZOLE (EC) 40 MG TAB PO SCH (05:47)
[2016-10-24 07:55] VITALS: BP 133/61; RESP 20
[2016-10-24] MEDS: INSULIN ASPART [NOVOLOG] 3 ML PEN SC SCH (08:00)
[2016-10-24 08:20] VITALS: PULSE 69
[2016-10-24] MEDS: DILTIAZEM (CD) 120 MG CAP PO SCH (09:58)
[2016-10-24] MEDS: LISINOPRIL 20 MG TAB PO SCH (09:58)
[2016-10-24] MEDS: ACETAMINOPHEN 500 MG TAB PO PRN (10:00)
[2016-10-24] MEDS ORDERED: PANT40TA4 PO (12:45)
[2016-10-24 12:49] VITALS: PULSE 68
--- NOTE | 2016-10-24 13:15 | DS ---
DATE OF ADMISSION: 10/21/2016 DATE OF DISCHARGE: 10/24/2016 FINAL DIAGNOSES 1. Severe anemia secondary to upper gastrointestinal bleed. 2. Duodenal ulcer, source of bleed. 3. Diabetes mellitus type 2, well controlled. 4. Hypertension. 5. Abnormal EKG changes with no evidence of myocardial infarction. HOSPITAL COURSE: The patient is an 86-year-old lady, well-known to me from previous followup, prese nting with increasing shortness of breath of 1 week duration with abdominal discomfort. The patient was found to be awake, alert. Chest exam revealed a few crackles heard at the bases. Initially wa s felt to have acute asthmatic bronchitis and the patient was begun on oxygen and given a dose of La six. Her hematocrit had dropped to 26.2. The following morning to 23.9. The patient was transfuse d 2 units of packed cells. Urine cultures grew Citrobacter, which was treated with Rocephin intrave nously and GI consultation obtained with Dr. Back who performed an upper endoscopy, colonoscopy. Upper endoscopy showed acute duodenal ulcer which was found to be the cause of bleeding. Colonoscop y showed diverticulum. No polyps. The patient was seen by Dr. Hsieh from cardiology stand point. There was no evidence of acute myocardial infarction. Ejection fraction was 60%. The patie nt was asymptomatic of any chest pain, and she was discharged home in much improved condition. Continue course of pantoprazole and follow up in the office over the next 2 weeks. DISCHARGE CONDITION: Much improved. Dictated By: BORIS ERNANDEZ MD, SR/JOSE JUAN Conf#: [id number] DID#: [id number]
--- NOTE | 2016-10-24 19:41 | CONS ---
Date/Time of Note Date/Time of Note DATE: 10/24/16 TIME: 19:39 Assessment/Plan Assessment/Plan Additional Assessment/Plan Assessment/Plan Additional Assessment/Plan Additional Assessment/Plan 1. Shortness of breath resolved 2. Positive stool guaiac 3. Anemia 4. personal history of colon polyp, last colonoscopy almost 20 years ago. 5. Acute duodenal ulcer Plan Discussed with the patient in the morning both by me and Dr. Ernandez to continue Protonix for at least 6-8 weeks Refrain from NSAID Reassured her that her pain would disappear once the ulcer heals completely Consultation Date/Type/Reason Admit Date/Time October 21, 2016 at 11:12 Initial Consult Date 10/22/16 Type of Consultation: Cardiology Referring Provider: BORIS ERNANDEZ MD 24 HR Interval Summary Free Text/Dictation Patient complains of epigastric pain Constitutional: improved Exam/Review of Systems Vital Signs Vitals Vital Signs Date Time Temp Pulse Resp B/P Pulse Ox O2 Delivery O2 Flow Rate FiO2 10/24/16 12:49 68 10/24/16 07:55 97.9 20 133/61 96 10/23/16 15:07 Room Air Intake and Output 10/23/16 10/23/16 10/24/16 15:00 23:00 07:00 Intake Total 250 ml Balance 250 ml Exam Constitutional: alert, oriented, well developed Psych: nl mood/affect, no complaints Head: atraumatic, normocephalic Eyes: EOMI, PERRL, nl conjunctiva, nl lids, nl sclera ENMT: nl external ears & nose, nl lips & teeth, nl nasal mucosa & septum Neck: non-tender, supple Respiratory: clear to auscultation, normal air movement Cardiovascular: nl pulses, regular rate and rhythm Gastrointestinal: nl liver, spleen, non-tender, soft Musculoskeletal: nl extremities to inspection, nl gait and stance Extremities: normal pulses Neurological: MILL OPERATOR HEAD II-XII intact, nl mental status, nl speech, nl strength Skin: nl turgor, No rash or lesions Lymph: nl lymph nodes Results Result Diagram: 10/23/16 0650 10/23/16 0650 Results 24 hrs Laboratory Tests Test 10/23/16 20:23 10/24/16 02:44 10/24/16 08:21 10/24/16 12:39 Bedside Glucose 186 114 126 156 JENNIFER ROLAND MD October 24, 2016 19:41
== END 2016-10-24 15:53 | disposition home or self-care (01) | DRG 811 ==
LOC: E/R 13:29 → INTOOBSV 18:45 → MS2 18:45 → MS4 20:19 → OBSVTOIN 10-21 11:12
PROVIDERS: ADMIT Internal Medicine; ATTEND Internal Medicine
PROC: 30233N1 Transfusion of Nonautologous Red Blood Cells into Peripheral Vein, Percutaneous Approach (ICD-10-PCS; 2016-10-19)
PROC: 0DB68ZX Excision of Stomach, Via Natural or Artificial Opening Endoscopic, Diagnostic (ICD-10-PCS; principal; 2016-10-23 12:00)
PROC: 0DJD8ZZ Inspection of Lower Intestinal Tract, Via Natural or Artificial Opening Endoscopic (ICD-10-PCS; 2016-10-23 12:00)
DX: D62 Acute posthemorrhagic anemia (principal); K26.0 Acute duodenal ulcer with hemorrhage; E11.8 Type 2 diabetes mellitus with unspecified complications; N39.0 Urinary tract infection, site not specified; J44.9 Chronic obstructive pulmonary disease, unspecified; B96.89 Other specified bacterial agents as the cause of diseases classified elsewhere; Z87.891 Personal history of nicotine dependence; Z86.010 Personal history of colon polyps; K29.70 Gastritis, unspecified, without bleeding; I10 Essential (primary) hypertension; R94.31 Abnormal electrocardiogram [ECG] [EKG]
CPT/HCPCS: 36430; 71010; 80048; 80053; 80061; 81001; 81003; 82270; 82378; 82550; 82553; 82728; 82962; 83605; 83690; 83735; 83880; 84484; 85025; 85045; 85378; 85610; 85730; 86850; 86900; 86901; 86920; 87081; 87086; 88305; 93005; 93306; 93970; 99217; G0378; J0360; J0696; J1815; J1940; J3475; J7030; P9016

== ENCOUNTER 2017-05-30 16:02 | Emergency (ER) | payer MEDICARE, OTHER ==
[~2017-05-30] VITALS: Wt 43.4 kg
[~2017-05-30 16:02] MED LIST changes: +CALC600T24 PO; +DILT120C79 PO; -GLIP1TAB32 PO; +GLYB1TAB3 PO; -PANT40TA3 PO; +PANT40TA4 PO
--- NOTE | 2017-05-30 18:09 | RADRPT ---
PROCEDURE: CT head without intravenous contrast CLINICAL INDICATION: Left frontal head trauma. COMPARISON: CT from 06/25/2016. TECHNIQUE: Axial CT images from skull base to vertex with coronal and sagittal reformats. DICOM imag es are available. DOSE: The estimated administered radiation dose was CTDI vol = 45 mGy. DLP = 720 mGy-cm. One or mor e of the following dose reduction techniques were used: automated exposure control, adjustment of th e mA and/or kV according to patient size, or use of iterative reconstruction. FINDINGS: Parenchyma: No acute hemorrhage, large territorial infarction, or mass. Moderate amount of periventr icular and subcortical white matter hypodensity, a nonspecific finding often associated with chronic microangiopathy. Ventricles: Mild generalized volume with proportionate ex vacuo ventricular dilation. Extra-axial spaces: No herniation or midline shift. Paranasal sinuses: Clear. Mastoids and middle ears: Clear. Visualized orbits: Normal. Vessels: Mild calcified atherosclerotic arterial plaque. Bones: No fracture. Extracranial soft tissues: Left forehead scalp hematoma measuring 10 mm thick. Additional comment: None. IMPRESSION: 1. Left frontal scalp hematoma without underlying fracture or acute intracranial hemorrhage. 2. Chronic senescent findings characterized by volume loss and white matter changes. RPTAT: PP Physician Go Date Time Electronically viewed and signed by Physician Go on 05/30/2017 18:08 LG/
--- NOTE | 2017-05-30 18:18 | RADRPT ---
PROCEDURE: CT Cervical Spine without intravenous contrast CLINICAL INDICATION: Trauma. Fall. COMPARISON: None available. TECHNIQUE: Axial noncontrast CT images of the cervical spine with coronal and sagittal reformats. DI COM images are available. DOSE ESTIMATE: CTDI vol = 22 mGy. DLP = 591 mGy-cm. One or more of the following dose reduction te chniques were used: automated exposure control, adjustment of the mA and/or kV according to patient size, or use of iterative reconstruction. FINDINGS: Alignment: Levoconvex curvature of the cervical spine which may be positional in nature. 2 mm sydnie listhesis of C3 and C4. 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 Osteopenia. No fracture, vertebral body height loss, or destructive bone lesion. Discs: Mature bony fusion across the C5-C6 disc level. Disc height loss at C3-C4 and C6-C7. Degenerative change: C2-C3 : Mild left and marked right facet arthropathy results in mild right foraminal narrowing. No c entral canal narrowing. C3-C4 : Moderate anterior endplate spurring. The anterolisthesis uncovers the disc by 4 mm. Ligament um flavum laxity. Moderate left and marked right facet arthropathy with disc height loss. Moderate c entral canal narrowing and severe bilateral foraminal narrowing. C4-C5 : 2 mm disc osteophyte complex with ligamentum flavum laxity, moderate left facet arthropathy, severe right facet arthropathy, results in moderate central canal narrowing, mild left foraminal na rrowing, and severe right foraminal narrowing. C5-C6 : Mild left facet arthropathy results in mild left foraminal narrowing. No central canal or ri ght foraminal narrowing. C6-C7 : Moderate anterior endplate spurring. 3 mm disc osteophyte complex with ligamentum flavum lax ity results in moderate central canal narrowing. Mild bilateral facet arthropathy with mild uncovert ebral joint arthropathy and disc height loss results in severe bilateral foraminal narrowing. C7-T1 : No uncovertebral or facet joint arthropathy. No central canal or foraminal narrowing. Paraspinal soft tissues: Normal. Visualized posterior fossa: Normal. Visualized neck: 11 mm nodule in the right thyroid lobe. Visualized lung apices: Biapical pleural scar. Additional comment: Mild calcified atherosclerotic arterial plaque. IMPRESSION: 1. No acute fracture. 2. Subluxation at C3-C4, most likely degenerative in nature. 3. Marked degenerative changes of the cervical spine with severe foraminal narrowing between C3-C4 and C6-C7 as well as moderate central canal narrowing at C3-C4, C4-C5, and C6-C7. 4. 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 RPTAT: PP Physician Go Date Time Electronically viewed and signed by Physician Go on 05/30/2017 18:17 LG/
--- NOTE | 2017-05-30 18:41 | ERD ---
ER Documentation Chief Complaint Chief Complaint HEAD INJURY S/P GLF, HEMATOMA ON FOREHEAD, NO KO, AMBULATORY HPI This 86-year-old female presents after fall today. She was arising from a bench , lost her balance fell forward and hit her forehead. Except naproxen 1 hour prior to presentation. Denies any dizziness, chest pain, syncope or seizure loss of consciousness, vomiting or visual changes or neck pain or weakness. She is a large hematoma on her frontal area. She takes aspirin but denies any blood thinners. ROS All systems reviewed and are negative except as per history of present illness. Medications Home Meds Active Scripts Pantoprazole* (Pantoprazole*) 40 Mg Tablet.dr, 40 MG PO DAILY@06 for 30 Days, # 30 3 Refills Prov:BORIS ERNANDZE MD 10/24/16 Reported Medications Calcium Carbonate* (Calcium Carbonate*) 600 MG Ca Tab, 600 MG PO HS, TAB 10/18/16 Trazodone Hcl* (Trazodone Hcl*) 50 Mg Tablet, 50 MG PO QHS Y for INSOMNIA, #30 TAB 10/18/16 Glyburide/Metformin HCl (Glucovance 5-500 mg Tablet) 1 Each Tablet, 1 EACH PO BID, TAB 10/18/16 Diltiazem Hcl* (Diltiazem XT) 120 Mg Capsule.sa, 120 MG PO DAILY, #30 CAP 10/18/16 Aspirin (Low Dose Aspirin) 81 Mg Tablet.dr, 81 MG PO DAILY 09/15/14 Lisinopril* (Lisinopril*) 40 Mg Tablet, 40 MG PO DAILY, TAB 09/15/14 Simvastatin (Simvastatin) 20 Mg Tablet, 20 MG PO HS, TAB 09/15/14 Allergies Allergies: Coded Allergies: sulfamethoxazole (Verified Allergy, Mild, SWOLLEN LIPS/MOUTH 2 DAYS AFTER TAKING MED PER PT, 10/18/16) SAID IT COULD BE ALLERGIC RXN TO SAID MEDICINE PER PT trimethoprim (Verified Allergy, Mild, SWOLLEN LIPS/MOUTH 2 DAYS AFTER TAKING MED PER PT, 10/18/16) SAID IT COULD BE ALLERGIC RXN TO SAID MEDICINE PER PT PMhx/Soc History of Surgery: No ("COLON POLYP REMOVAL" 2005) Anesthesia Reaction: No Hx Neurological Disorder: No Hx Respiratory Disorders: No (AT THIS TIME, PATIENT HAS SOB) Hx Cardiac Disorders: No Hx Psychiatric Problems: No (TAKES TRAZODONE ONLY FOR INSOMNIA) Hx Miscellaneous Medical Probl: No Hx Alcohol Use: Yes (OCCASIONAL) Hx Substance Use: No Hx Tobacco Use: Yes (30 YEARS AGO) Smoking Status: Never smoker Physical Exam Vitals Vital Signs Date Time Temp Pulse Resp B/P Pulse Ox O2 Delivery O2 Flow Rate FiO2 05/30/17 16:11 98.7 66 18 153/68 97 Physical Exam Const: [] Alert, [id number]. Head: Large hematoma on the left upper frontal area without appreciable deformities. Eyes: Normal Conjunctiva. Eyes are PERRLA and extraocular movements intact. ENT: Normal External Ears, Nose and Mouth. No hemotympanum. Neck: Full range of motion..~ No meningismus. Neck nontender. Resp: Clear to auscultation bilaterally Cardio: Regular rate and rhythm, no murmurs Abd: Soft, non tender, non distended. Normal bowel sounds Skin: No petechiae or rashes Back: No midline or flank tenderness Ext: No cyanosis, or edema Neur: Awake and alert Psych: Normal Mood and Affect Procedures/MDM CT brain and cervical spine shows no evidence of fracture or bleeding. There are degenerative changes in the cervical spine. EKG: Rate/Rhythm: [Normal Sinus Rhythm] rate equals 67 QRS, ST, T-waves: [No changes consistent w/ acute ischemia] Impression: [No evidence of ischemia or arrhythmia] depression-normal EKG Patient was ambulatory, [id number] throughout the ED course. Patient presents after appears to be a mechanical fall with a forehead hematoma without evidence of intracranial bleeding, mass-effect, fracture, dislocation, neck injury, deficits, additional complications due to her fall today. Denies any chest pain or dizziness or any other symptoms related to her fall. She will be discharged home with further observation, Tylenol for pain, return precautions and primary care follow-up. The patient was stable with no new complaints during the ER course. Clinically, there is no current evidence to suggest meningitis, sepsis, acute abdomen, pneumonia, acute coronary syndrome, pulmonary embolism, or any other emergent condition appearing to require further evaluation or hospitalization. The patient should certainly return for any new or worsening symptoms per the aftercare instructions. They should otherwise follow-up with her primary care doctor for reevaluation this week. Departure Diagnosis: Primary Impression: Head injury Encounter type: initial encounter Qualified Code: S09.90XA - Injury of head , initial encounter Additional Impression: Fall Encounter type: initial encounter Qualified Code: W19.XXXA - Fall, initial encounter Condition: Stable Patient Instructions: Fall, Mechanical, HEAD INJURY, No Wake-Up (Adult) Additional Instructions: No fracture or bleeding seen on CT scans today. Take Tylenol for pain and apply ice. Recheck for vomiting, new worsening symptoms or with primary care doctor. PAU VIRK MD May 30, 2017 18:41
[2017-05-30 19:02] VITALS: BP 155/67; PULSE 62; RESP 16; TEMP 97.8
== END 2017-05-30 19:03 | disposition home or self-care (01) ==
LOC: FTE 16:02
DX: S00.83XA Contusion of other part of head, initial encounter (principal); R40.2142 Coma scale, eyes open, spontaneous, at arrival to emergency department; R40.2252 Coma scale, best verbal response, oriented, at arrival to emergency department; R40.2362 Coma scale, best motor response, obeys commands, at arrival to emergency department; R42 Dizziness and giddiness; W18.09XA Striking against other object with subsequent fall, initial encounter; Y92.9 Unspecified place or not applicable; Z79.82 Long term (current) use of aspirin; Z87.891 Personal history of nicotine dependence
CPT/HCPCS: 70450; 72125; 93005

== ENCOUNTER 2017-10-02 10:07 | Emergency (ER) | END 2017-10-02 12:56 | disposition home or self-care (01) ==

== ENCOUNTER → 2018-08-04 | Outpatient (CLI) | payer MEDICARE, OTHER ==
[~2018-08-04] MED LIST changes: +ACET325T33 PO; -ASPI-664 PO; +GABA100C14 PO; -GLYB1TAB3 PO; +GLYB5TAB3 PO; +LISI40TA3 PO; -LISI40TA9 PO; +TRAZ-111 PO; -TRAZ50TA18 PO
== END | disposition home or self-care (01) ==
LOC: VAS 08:54
PROVIDERS: ATTEND Internal Medicine
DX: I82.4Z1 Acute embolism and thrombosis of unspecified deep veins of right distal lower extremity (principal)
CPT/HCPCS: 93971

== ENCOUNTER 2018-08-29 05:12 | Emergency (ER) | payer MEDICARE, OTHER ==
[~2018-08-29] VITALS: Wt 44.5 kg
--- NOTE | 2018-08-29 06:24 | ERD ---
ER Documentation Chief Complaint Chief Complaint LAC TO BACK OF HEAD S/P MECHANICAL FALL HPI 87-year-old female with history of diabetes, hypertension, hyperlipidemia brought to the ED by her daughter after a fall this morning. Patient lives in a assisted care facility. Patient reports was going to the bathroom this morning was standing in the bathroom when she fell to the ground. There was no prodrome including but not limited to chest pain, palpitations, headache, dizziness or shortness of breath. She denies loss of consciousness. Planes of mild, occipital headache and bleeding. Denies neck or back pain. No visual changes, focal weakness or numbness. Denies abdominal pain, nausea, vomiting, diarrhea or constipation. No dysuria, polyuria, hematuria or flank pain. No extremity injury. No URI symptoms or cough. No fevers or chills. ROS All systems reviewed and are negative except as per history of present illness. Medications Home Meds Active Scripts Diltiazem Hcl* (Diltiazem XT) 120 Mg Capsule.sa, 120 MG PO DAILY, #30 CAP Prov:JOHAN CASTILLO MD 08/29/18 Ferrous Sulfate (Ferrous Sulfate) 324 Mg Tablet., 324 MG PO DAILY, #10 Prov:JOHAN CASTILLO MD 08/29/18 Acetaminophen* (Tylenol*) 325 Mg Tablet, 2 TAB PO Q6 PRN for PAIN AND OR ELEVATED TEMP, #20 TAB Prov:CAYDEN RICHARDS PA-C 10/02/17 Pantoprazole* (Pantoprazole*) 40 Mg Tablet., 40 MG PO DAILY@06 for 30 Days, # 30 3 Refills Prov:BORIS ERNANDEZ MD 10/24/16 Reported Medications Glyburide* (Glyburide*) 5 Mg Tablet, 5 MG PO BID, #60 TAB 06/12/18 Gabapentin* (Gabapentin*) 100 Mg Capsule, 100 MG PO BID, #90 CAP 06/12/18 Calcium Carbonate* (Calcium Carbonate*) 600 MG Ca Tab, 600 MG PO HS, TAB 10/18/16 Trazodone Hcl* (Trazodone Hcl*) 50 Mg Tablet, 50 MG PO QHS PRN for INSOMNIA, #30 TAB 10/18/16 Diltiazem Hcl* (Diltiazem XT) 120 Mg Capsule.sa, 120 MG PO DAILY, #30 CAP 10/18/16 Lisinopril* (Lisinopril*) 40 Mg Tablet, 40 MG PO DAILY, TAB 09/15/14 Simvastatin (Simvastatin) 20 Mg Tablet, 20 MG PO HS, TAB 09/15/14 Allergies Allergies: Coded Allergies: sulfamethoxazole (Unverified Allergy, Mild, SWOLLEN LIPS/MOUTH 2 DAYS AFTER TAKING MED PER PT, 06/12/18) SAID IT COULD BE ALLERGIC RXN TO SAID MEDICINE PER PT trimethoprim (Unverified Allergy, Mild, SWOLLEN LIPS/MOUTH 2 DAYS AFTER TAKING MED PER PT, 06/12/18) SAID IT COULD BE ALLERGIC RXN TO SAID MEDICINE PER PT PMhx/Soc Immunizations including tetanus up-to-date History of Surgery: Yes (ABDOMINAL ) Anesthesia Reaction: No Hx Neurological Disorder: No Hx Respiratory Disorders: No Hx Cardiac Disorders: Yes (HTN, HYPERLIPIDEMIA ) Hx Psychiatric Problems: No Hx Miscellaneous Medical Probl: Yes (DM II, COLON CA ) Hx Alcohol Use: No Hx Substance Use: No Hx Tobacco Use: No Smoking Status: Never smoker FmHx No sudden cardiac or stroke. Physical Exam Vitals Vital Signs Date Temp Pulse Resp B/P (MAP) Pulse Ox O2 O2 Flow FiO2 Time Delivery Rate 08/29/18 98.0 65 16 158/78 99 Room Air 10:38 (104) 08/29/18 98.1 70 18 161/74 99 Room Air 09:05 (103) 08/29/18 98.1 71 16 155/74 97 Room Air 07:00 (101) 08/29/18 98.3 85 18 145/70 97 05:18 (95) Physical Exam Const: No acute distress Head: 2.5 cm occipital laceration with mild tenderness. No active bleeding. Eyes: Normal Conjunctiva. No periorbital ecchymosis or subconjunctival hemorrhage. ENT: Normal External Ears, Nose and Mouth. No hemotympanum, negative bates sign. Neck: Full range of motion. No midline bony tenderness or paraspinal muscle spasm. Carotids 2+ bilateral without bruits. No JVD.. Resp: Breath sounds are equal and clear to auscultation bilaterally Cardio: Regular rate and rhythm, no murmurs, gallops or rubs. Abd: Soft, non tender, non distended. No rebound or guarding. No masses or abnormal pulsations. Normal bowel sounds Skin: No petechiae or rashes. Multiple ecchymosis right upper extremity. Back: No midline or flank tenderness. No paraspinal tenderness or muscle spasm. Ext: No cyanosis. No long bone or joint swelling, tenderness or deformity. Full range of motion. Mild, nonpitting edema right lower extremity. Nontender. Pulses 4+ in all extremities. Neur: Awake and alert. Cranial nerves II through XII are grossly intact. Motor and sensory equal bilaterally. No focal deficit. Psych: Normal Mood and Affect Result Diagram: 08/29/1865608/29/18656 Results 24 hrs Laboratory Tests Test 08/29/18 06:57 White Blood Count 9.5 10^3/ul Red Blood Count 3.77 10^6/ul Hemoglobin 10.4 g/dl Hematocrit 32.9 % Mean Corpuscular Volume 87.3 fl Mean Corpuscular Hemoglobin 27.6 pg Mean Corpuscular Hemoglobin Concent 31.6 g/dl Red Cell Distribution Width 14.7 % Platelet Count 176 10^3/UL Mean Platelet Volume 10.0 fl Immature Granulocytes % 0.200 % Neutrophils % 78.1 % Lymphocytes % 12.4 % Monocytes % 7.8 % Eosinophils % 1.3 % Basophils % 0.2 % Nucleated Red Blood Cells % 0.0 /100WBC Immature Granulocytes # 0.020 10^3/ul Neutrophils # 7.4 10^3/ul Lymphocytes # 1.2 10^3/ul Monocytes # 0.7 10^3/ul Eosinophils # 0.1 10^3/ul Basophils # 0.0 10^3/ul Nucleated Red Blood Cells # 0.0 10^3/ul Sodium Level 142 mmol/L Potassium Level 4.3 mmol/L Chloride Level 100 mmol/L Carbon Dioxide Level 32 mmol/L Anion Gap 10 Blood Urea Nitrogen 21 mg/dl Creatinine 0.53 mg/dl Est Glomerular Filtrat Rate mL/min mL/min Glucose Level 118 mg/dl Calcium Level 10.0 mg/dl Current Medications Medications Dose Sig/Fer Start Time Status Last (Trade) Ordered Route PRN Stop Time Admin Dose Reason Admin Lidocaine/ 20 ml ONCE STAT 08/29/18 DC Epinephrine INJ 07:41 (Xylocaine 08/29/18 07:46 1%/ Epi (Mdv) 20 ml) Bacitracin 1 applic ONCE ONCE 08/29/18 DC 08/29/18 (Bacitracin TOP 09:00 09:44 Oint (Ud)) 08/29/18 09:11 Procedures/MDM DOCUMENTS REVIEWED: ED nurse, prior ED, prior records EKG: Time: 07:03. Sinus rhythm. Ventricular rate 71. Normal MI and QRS. No ectopy. Septal Q waves but no acute ST elevation or depression. Unchanged from prior. My Interpretation IMAGING: PROCEDURE: CT Brain without contrast. CLINICAL INDICATION: Fall, head injury TECHNIQUE: A CT of the brain was performed utilizing axial imaging from the skull base through the vertex without IV contrast. Multiplanar reformatted images were made. Images were reviewed on a PACS workstation. CTDIvol: 37.91 mGy DLP: 634.23 mGycm DICOM images are available. One or more of the following dose reduction techniques were utilized: 1.) Automated exposure control 2.) Adjustment of the mA +/- kV according to patient's size 3.) Use of iterative reconstruction technique. COMPARISON: CT BRAIN 06/12/2018 FINDINGS: CALVARIUM: Mild swelling in the posterior left parietal scalp. Bony calvarium is intact. SINUSES: Paranasal sinuses and mastoid air cells are clear. BRAIN: There is generalized cerebral volume loss and moderate diminished white matter attenuation consistent with chronic small vessel ischemic changes. No evidence of an acute or subacute territorial infarction. There is no intracranial mass or hemorrhage. Ventricles and cisterns are unremarkable. IMPRESSION: 1. Mild left parietal scalp swelling. No additional acute findings. 2. Negative for intracranial hemorrhage. 3. Generalized volume loss, moderate chronic small vessel ischemic changes. RPTAT: [facility] Physician Arik Date Time Electronically viewed and signed by Physician Arik on 08/29/2018 06:18 xB/ PROCEDURE: CT Cervical Spine without contrast. CLINICAL INDICATION: Trauma TECHNIQUE: A CT of the cervical spine was performed on a multidetector CT scanner utilizing thin section axial images from the skull base through the thoracic inlet. Sagittal and coronal reformatted images were made. The CTDIvol is 22 mGy and the DLP is the 479 mGycm. DICOM images are available. One or more of the following dose reduction techniques were utilized: 1.) Automated exposure control 2.) Adjustment of the mA +/- kV according to patient's size 3.) Use of iterative reconstruction technique. COMPARISON: CT cervical spine June 12, 2018 FINDINGS: There is stable 2 mm anterolisthesis of C3-C4 with straightened lordosis of the upper cervical spine. No other step-off or prevertebral soft tissue swelling is present. Vertebral bodies are of normal height. No fracture is visualized. There is moderate narrowing of C3-C4 and C6-C7 discs and there is fusion of C5-C6 vertebral bodies. The other disc heights are maintained. Pedicles and posterior elements are intact with no fracture. No gross disc herniation is present. There is right greater than left foraminal stenosis at C3-C4 with foraminal stenosis on the right at C4-C5. Multilevel bilateral facet arthropathy is again seen. IMPRESSION: No acute abnormality. No fracture. Stable minimal anterolisthesis C3-C4. Fusion C5-C6. Multilevel bilateral facet arthropathy with foraminal stenosis as above unchanged. No disc herniation and no significant central stenosis. No change. .Star Paniagua MD, Date Time Electronically viewed and signed by .Star Paniagua MD, on 08/29/2018 06:16 .A/ Laceration Repair by me: Anesthesia: 1% lidocaine with epinephrine 2 cc locally Location: Occipital scalp Foreign body: None detected after copious irrigation and exploration Technique: Surgical lowell Complexity: No subcutaneous sutures/mucosal repair/edge excision Post Closure Length: 2.5 cm Arterial bleeding controlled with 3-0 Prolene ligature. No evidence of neurologic injury or foreign body. Patient is appropriate for outpatient follow up. 48 hour wound check. Scar minimization instructions given. MEDICAL DECISION MAKIN-year-old female with history of diabetes, hypertension, hyperlipidemia brought to the ED by her daughter after a fall this morning. CBC reveals microcytic, hyperchromic anemia with hemoglobin of 10.4 g/dL but no leukocytosis or thrombocytopenia. Chemistry significant for elevated BUN with normal creatinine but no electrolyte abnormalities, hypo- /hyperglycemia. EKG is negative for dysrhythmia or ischemia. CT of the brain to evaluate for subdural/epidural hematoma, mass, hydrocephalus and ischemia reveals atrophy but no remarkable for acute disease. CT of the cervical spine reveals chronic changes as described but no acute, fracture or subluxation patient presents after a fall with closed head injury and scalp laceration which was closed primarily. Of note is multiple recent syncopal episodes versus falls. 6 episodes since June 2016. Prior cardiac workups have been negative including a normal echocardiogram. Stable for discharge with precautionary instructions and outpatient follow-up as counseled. Time: 07:58. Dr Rucker. Patient is well known. Has had extensive prior GI, cardiac and neurologic workups. Recommends discharge and will follow as an outpatient Though the patient's latest blood pressure was elevated (>120/80), the patient has a known history of hypertension and urged to pursue adjustment of their medical therapy within a week with their primary care physician. Please refer to the medication reconciliation form for the current list of hypertensive medica tions. Counseled patient and family regarding diagnostic workup, diagnosis and need for followup. Understands to return to ED if symptoms recur, worsen or any other concerns. Departure Diagnosis: Primary Impression: Fall Encounter type: initial encounter Qualified Codes: W19.XXXA - Unspecified fall, initial encounter Additional Impressions: Head injury, acute, without loss of consciousness Encounter type: initial encounter Qualified Codes: S09.90XA - Unspecified injury of head, initial encounter Scalp laceration Encounter type: initial encounter Qualified Codes: S01.01XA - Laceration without foreign body of scalp, initial encounter Microcytic anemia Mild dehydration Syncope Syncope type: unspecified Qualified Codes: R55 - Syncope and collapse Condition: Stable JOHAN CASTILLO MD Aug 29, 2018 06:24
[2018-08-29] MEDS ORDERED: LIDOCAINE 1%/EPI (1:100,000) (MDV) 20 ML INJ STA (07:41)
[2018-08-29] MEDS ORDERED: BACITRACIN 0.9 GM OINT TOP ONE (09:00)
[2018-08-29] MEDS ORDERED: FERR324T4 PO (09:04)
[2018-08-29] MEDS ORDERED: DILT120C79 PO (10:32)
[2018-08-29 10:38] VITALS: BP 158/78; PULSE 65; RESP 16
== END 2018-08-29 10:41 | disposition home or self-care (01) ==
LOC: E/R 05:12
DX: S01.01XA Laceration without foreign body of scalp, initial encounter (principal); I10 Essential (primary) hypertension; E11.9 Type 2 diabetes mellitus without complications; D50.9 Iron deficiency anemia, unspecified; E86.0 Dehydration; R55 Syncope and collapse; W18.39XA Other fall on same level, initial encounter; Y92.002 Bathroom of unspecified non-institutional (private) residence as the place of occurrence of the external cause; Z85.038 Personal history of other malignant neoplasm of large intestine
CPT/HCPCS: 70450; 72125; 80048; 85025; 93005

== ENCOUNTER 2018-11-25 09:34 | Emergency (ER) | payer MEDICARE, OTHER ==
[~2018-11-25] VITALS: Ht 149.9 cm; Wt 38.6 kg
[~2018-11-25 09:34] MED LIST changes: +FERR324T4 PO
[2018-11-25 09:48] VITALS: Ht 149.9 cm; Wt 38.6 kg
[2018-11-25] MEDS ORDERED: METF500T24 PO (11:34)
[2018-11-25] MEDS ORDERED: PANT40TA3 PO (11:34)
[2018-11-25] MEDS ORDERED: LISI40TA3 PO (11:34)
[2018-11-25] MEDS ORDERED: DILT120C77 PO (11:35)
[2018-11-25] MEDS ORDERED: GABA100C14 PO (11:35)
[2018-11-25] MEDS ORDERED: TRAZ-111 PO (11:36)
[2018-11-25] MEDS ORDERED: CEFTRIAXONE 1 GM/50 ML (PMX) 50 ML IVPB ONE (12:30)
[2018-11-25] MEDS ORDERED: CEPH-443 PO (12:33)
[2018-11-25 12:58] VITALS: BP 170/70; PULSE 70; RESP 20
--- NOTE | 2018-11-25 13:18 | ERD ---
ER Documentation Chief Complaint Chief Complaint difficulty walking x 3 weeks ; headache started today HPI 88-year-old female presents to the emergency room with some unsteady gait for approximately 3 to 4 weeks. Patient states that she feels unsteady when walking. She denies any motor weakness. No slurred speech or clumsiness noted. Patient had noted some mild headache today that was gradual onset and frontal and very mild. She denies any slurred speech, acute change. ROS All systems reviewed and are negative except as per history of present illness. Medications Home Meds Active Scripts Cephalexin* (Keflex*) 500 Mg Capsule, 500 MG PO BID for 7 Days, CAP Prov:LINCOLN MCBRIDE MD 11/25/18 Reported Medications Trazodone Hcl* (Trazodone Hcl*) 50 Mg Tablet, 50 MG PO QHS, #30 TAB 11/25/18 Diltiazem Hcl* (Cardizem CD*) 120 Mg Cap.sr.24h, 120 MG PO DAILY, #30 CAP 11/25/18 Gabapentin* (Gabapentin*) 100 Mg Capsule, 100 MG PO BID, #90 CAP 11/25/18 Pantoprazole* (Protonix*) 40 Mg Tablet.dr, 40 MG PO DAILY, TAB 11/25/18 Lisinopril* (Lisinopril*) 40 Mg Tablet, 40 MG PO DAILY, #30 TAB 11/25/18 Metformin Hcl* (Metformin Hcl*) 500 Mg Tablet, 500 MG PO WITH BREAKFAST DINNE, #60 TAB 11/25/18 Discontinued Reported Medications Glyburide* (Glyburide*) 5 Mg Tablet, 5 MG PO BID, #60 TAB 06/12/18 Gabapentin* (Gabapentin*) 100 Mg Capsule, 100 MG PO BID, #90 CAP 06/12/18 Calcium Carbonate* (Calcium Carbonate*) 600 MG Ca Tab, 600 MG PO HS, TAB 10/18/16 Trazodone Hcl* (Trazodone Hcl*) 50 Mg Tablet, 50 MG PO QHS PRN for INSOMNIA, #30 TAB 10/18/16 Diltiazem Hcl* (Diltiazem XT) 120 Mg Capsule.sa, 120 MG PO DAILY, #30 CAP 10/18/16 Lisinopril* (Lisinopril*) 40 Mg Tablet, 40 MG PO DAILY, TAB 09/15/14 Simvastatin (Simvastatin) 20 Mg Tablet, 20 MG PO HS, TAB 09/15/14 Discontinued Scripts Diltiazem Hcl* (Diltiazem XT) 120 Mg Capsule.sa, 120 MG PO DAILY, #30 CAP Prov:JOHAN CASTILLO MD 08/29/18 Ferrous Sulfate (Ferrous Sulfate) 324 Mg Tablet.dr, 324 MG PO DAILY, #10 Prov:JOHAN CASTILLO MD 08/29/18 Acetaminophen* (Tylenol*) 325 Mg Tablet, 2 TAB PO Q6 PRN for PAIN AND OR ELEVATED TEMP, #20 TAB Prov:CAYDEN RICHARDS PA-C 10/02/17 Pantoprazole* (Pantoprazole*) 40 Mg Tablet., 40 MG PO DAILY@06 for 30 Days, #30 3 Refills Prov:BORIS HDZ MD 10/24/16 Allergies Allergies: Coded Allergies: sulfamethoxazole (Unverified Allergy, Mild, SWOLLEN LIPS/MOUTH 2 DAYS AFTER TAKING MED PER PT, 11/25/18) SAID IT COULD BE ALLERGIC RXN TO SAID MEDICINE PER PT trimethoprim (Unverified Allergy, Mild, SWOLLEN LIPS/MOUTH 2 DAYS AFTER TAKING MED PER PT, 11/25/18) SAID IT COULD BE ALLERGIC RXN TO SAID MEDICINE PER PT PMhx/Soc History of Surgery: Yes (ABDOMINAL ) Anesthesia Reaction: No Hx Neurological Disorder: No Hx Respiratory Disorders: No Hx Cardiac Disorders: Yes (HTN, HYPERLIPIDEMIA ) Hx Psychiatric Problems: No Hx Miscellaneous Medical Probl: Yes (DM II, COLON CA ) Hx Alcohol Use: No Hx Substance Use: No Hx Tobacco Use: No Smoking Status: Never smoker FmHx Family History: No diabetes Physical Exam Vitals Vital Signs Date Temp Pulse Resp B/P (MAP) Pulse Ox O2 O2 Flow FiO2 Time Delivery Rate 11/25/18 98.0 70 20 170/70 97 Room Air 12:58 (103) 11/25/18 2 10:52 11/25/18 97.8 63 20 189/74 98 Room Air 10:28 (112) 11/25/18 97.8 71 189/74 98 09:48 (112) Physical Exam General: Well developed, well nourished, no acute distress Head: Normocephalic, atraumatic. Eyes: Pupils equally reactive, EOM intact ENT: Moist mucous membranes Neck: Supple, no lymphadenopathy Respiratory: Lungs clear bilaterally, no distress Cardiovascular: RRR, no murmurs, rubs, or gallops Abdominal: Soft, non-tender, non-distended, no peritoneal signs : Deferred MSK: No edema, no unilateral swelling, 5/5 strength Neurologic: Alert and oriented, moving all extremities, normal speech, no focal weakness, no cerebellar signs Skin: No rash Psych: Normal mood Result Diagram: 11/25/18 1110 11/25/18 1109 Results 24 hrs Laboratory Tests Test 11/25/18 11:09 11/25/18 11:10 11/25/18 11:12 11/25/18 12:00 Prothrombin Time 13.0 Sec Prothrombin Time 1.0 Ratio INR 0.97 International Normalized Ratio Activated 28.0 Sec Partial Thrombop last Time Sodium Level 138 mmol/L Potassium Level 3.8 mmol/L Chloride Level 98 mmol/L Carbon Dioxide 30 mmol/L Level Anion Gap 10 Blood Urea 20 mg/dl Nitrogen Creatinine 0.57 mg/dl Est Glomerular mL/min Filtrat Rate mL/min Glucose Level 119 mg/dl Calcium Level 10.0 mg/dl Troponin I < 0.012 ng/ml Triglycerides 70 mg/dl Level Cholesterol 165 mg/dl Level LDL Cholesterol, 80 mg/dl Calculated HDL Cholesterol 71 mg/dl Cholesterol/HDL 2.3 RATIO Ratio White Blood 6.9 10^3/ul Count Red Blood Count 3.92 10^6/ul Hemoglobin 11.2 g/dl Hematocrit 34.9 % Mean Corpuscular 89.0 fl Volume Mean Corpuscular 28.6 pg Hemoglobin Mean Corpuscular 32.1 g/dl Hemoglobin Kathy nt Red Cell 14.6 % Distribution Width Platelet Count 191 10^3/UL Mean Platelet 9.5 fl Volume Immature 0.300 % Granulocytes % Neutrophils % 67.7 % Lymphocytes % 22.8 % Monocytes % 7.4 % Eosinophils % 1.5 % Basophils % 0.3 % Nucleated Red 0.0 /100WBC Blood Cells % Immature 0.020 10^3/ul Granulocytes # Neutrophils # 4.7 10^3/ul Lymphocytes # 1.6 10^3/ul Monocytes # 0.5 10^3/ul Eosinophils # 0.1 10^3/ul Basophils # 0.0 10^3/ul Nucleated Red 0.0 10^3/ul Blood Cells # Hemoglobin A1c 7.0 % Bedside Glucose 122 mg/dL Urine Color YELLOW Urine Clarity CLOUDY Urine pH 6.0 Urine Specific 1.008 [place] Urine Ketones NEGATIVE mg/dL Urine Nitrite NEGATIVE mg/dL Urine Bilirubin NEGATIVE mg/dL Urine NEGATIVE mg/dL Urobilinogen Urine Leukocyte 3+ Nati/ul Esterase Urine 61 /HPF Microscopic RBC Urine > 182 /HPF Microscopic WBC Urine Bacteria MODERATE /HPF Urine Hemoglobin 1+ mg/dL Urine Glucose NEGATIVE mg/dL Urine Total 1+ mg/dl Protein Urine Opiates Negative Screen Urine Negative Barbiturates Urine Negative Amphetamines Screen Urine Negative Benzodiazepines Screen Urine Cocaine Negative Screen Urine Negative Cannabinoids Current Medications Medications Dose Sig/Fer Start Time Status Last (Trade) Ordered Route PRN Stop Time Admin Dose Reason Admin Ceftriaxone 50 ml @ ONCE ONCE 11/25/18 DC 11/25/18 Sodium 100 mls/hr IVPB 12:30 12:35 11/25/18 12:59 Procedures/MDM EKG, MONITORS, & DIAGNOSTIC IMAGING: EKG: I reviewed and interpreted a 12-lead EKG. Rhythm: Normal sinus rhythm ST Changes: No contiguous ST segment elevations T waves: No contiguous T wave inversions Impression: No evidence of acute cardiac ischemia CTB IMPRESSION: 1. No evidence of acute intracranial hemorrhage, infarcts, or acute intracranial pathology. 2. 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 Moderate atherosclerotic vascular disease Critical finding A call report was made to Lincoln Mcbride at 11/25/2018 11:44:13 AM following the completion of the examination by the undersigned. CXR: no acute process per radiology read LAB INTERPRETATION: I reviewed the laboratory testing and it shows UTI MEDICAL DECISION MAKING: Patient has unsteady gait for approximately 3 to 4 weeks. The patient is ambulating on her own but it feels like she needs some assistance to the bathroom usually at night. Patient is at an assisted living facility, these resources can be met. Unclear etiology. The patient is a subacute process with a nonfocal neurologic exam. This seems inconsistent with stroke. Possibly age- related changes. Outpatient MRI imaging may be necessary. Patient has appropriate primary care follow-up. ER COURSE: * Patient has evidence of urinary tract infection. Subtraction provided. * I had a conversation with the patient's primary care physician, Dr. Hdz. We discussed inpatient versus outpatient management. He feels comfortable managing the patient as an outpatient following up for her subacute process. * Patient is at appropriate senior care facility. No recent falls or injuries during this timeframe. CONSULTATION: None DISPOSITION PLAN: The patient does not have an identifiable emergent medical condition that warrants inpatient hospitalization at this time. The patient is deemed safe for discharge with outpatient follow-up. We discussed follow up with the patient's primary care doctor within 24 to 48 hours as needed. We also discussed return to the emergency room for worsening symptoms or worsening condition. Outpatient referral: None required Discharge Medications: Keflex Departure Diagnosis: Primary Impression: Weakness Additional Impression: UTI (urinary tract infection) Urinary tract infection type: acute cystitis Hematuria presence: without hematuria Qualified Codes: N30.00 - Acute cystitis without hematuria Condition: Stable Patient Instructions: Understanding Urinary Tract Infections (UTIs), Generalized Weakness Additional Instructions: Call your primary care doctor TOMORROW for an appointment during the next 1 WEEK.Tell the private secretary that you were referred from this facility.See the doctor sooner or return here if your condition worsens before your appointment time. LINCOLN MCBRIDE MD Nov 25, 2018 13:18
== END 2018-11-25 13:30 | disposition home or self-care (01) ==
LOC: E/R 09:34
DX: N30.00 Acute cystitis without hematuria (principal); I10 Essential (primary) hypertension; E11.9 Type 2 diabetes mellitus without complications; Z79.84 Long term (current) use of oral hypoglycemic drugs; Z85.038 Personal history of other malignant neoplasm of large intestine
CPT/HCPCS: 36415; 70450; 71045; 80048; 80061; 80307; 81001; 82962; 83036; 84484; 85025; 85610; 85730; 93005; 96365; 99285; J0696

== ENCOUNTER 2018-12-04 12:21 | Emergency (ER) | payer MEDICARE, OTHER ==
[~2018-12-04] VITALS: Ht 147.3 cm; Wt 38.6 kg
[~2018-12-04 12:21] MED LIST changes: -ACET325T33 PO; -CALC600T24 PO; +CEPH-443 PO; +DILT120C77 PO; -DILT120C79 PO; -FERR324T4 PO; -GLYB5TAB3 PO; +METF500T24 PO; +PANT40TA3 PO; -PANT40TA4 PO; -SIMV20TA2 PO
[2018-12-04 12:31] VITALS: Ht 147.3 cm; Wt 38.6 kg
[2018-12-04 15:10] VITALS: BP 117/58; PULSE 68; RESP 16
--- NOTE | 2018-12-04 16:04 | ERD ---
ER Documentation Chief Complaint Chief Complaint pt is bib family with c/o fall with head lac today, denies KO HPI This is a very pleasant 88-year-old female that presented to the emergency department after she had a mechanical trip and fall. She hit the back of her head onto a dresser. She did not have any loss of consciousness. She denies a headache. She denies any neck pain. She denies any difficulty breathing. She is not on blood thinners. ROS All systems reviewed and are negative except as per history of present illness. Medications Home Meds Reported Medications Trazodone Hcl* (Trazodone Hcl*) 50 Mg Tablet, 50 MG PO QHS, #30 TAB 11/25/18 Diltiazem Hcl* (Cardizem CD*) 120 Mg Cap.sr.24h, 120 MG PO DAILY, #30 CAP 11/25/18 Gabapentin* (Gabapentin*) 100 Mg Capsule, 100 MG PO BID, #90 CAP 11/25/18 Pantoprazole* (Protonix*) 40 Mg Tablet.dr, 40 MG PO DAILY, TAB 11/25/18 Lisinopril* (Lisinopril*) 40 Mg Tablet, 40 MG PO DAILY, #30 TAB 11/25/18 Metformin Hcl* (Metformin Hcl*) 500 Mg Tablet, 500 MG PO WITH BREAKFAST DINNE, #60 TAB 11/25/18 Discontinued Scripts Cephalexin* (Keflex*) 500 Mg Capsule, 500 MG PO BID for 7 Days, CAP Prov:LILIANE HATHAWAY MD 11/25/18 Allergies Allergies: Coded Allergies: sulfamethoxazole (Unverified Allergy, Mild, SWOLLEN LIPS/MOUTH 2 DAYS AFTER TAKING MED PER PT, 12/04/18) SAID IT COULD BE ALLERGIC RXN TO SAID MEDICINE PER PT trimethoprim (Unverified Allergy, Mild, SWOLLEN LIPS/MOUTH 2 DAYS AFTER TAKING MED PER PT, 12/04/18) SAID IT COULD BE ALLERGIC RXN TO SAID MEDICINE PER PT PMhx/Soc History of Surgery: Yes (ABDOMINAL ) Anesthesia Reaction: No Hx Neurological Disorder: No Hx Respiratory Disorders: No Hx Cardiac Disorders: Yes (HTN, HYPERLIPIDEMIA ) Hx Psychiatric Problems: No Hx Miscellaneous Medical Probl: Yes (DM II, COLON CA ) Hx Alcohol Use: No Hx Substance Use: No Hx Tobacco Use: No Smoking Status: Never smoker Physical Exam Vitals Vital Signs Date Temp Pulse Resp B/P (MAP) Pulse Ox O2 O2 Flow FiO2 Time Delivery Rate 12/04/18 98.4 68 16 117/58 98 15:10 (77) 12/04/18 98.4 74 16 131/61 98 12:31 (84) Physical Exam Constitutional:Well-developed. Well-nourished. HEENT:Normocephalic. Abrasion over the right parietal region with small hematoma. No laceration.Pupils were equal round reactive to light. No midface mobility. No avulsions or fractures of the teeth Neck: No nuchal rigidity. No lymphadenopathy. No posterior cervical spine tenderness or step-offs. Respiratory: Not using accessory muscles of respiration.Lungs were clear to auscultation bilaterally. No rhonchi. No rales. No wheezing. Cardiovascular: Regular rate regular rhythm.No murmurs. No rubs were appreciated.S1, S2 normal. Distal pulses are palpable 2+ bilaterally. No crepitus no ecchymosis no flail chest GI: Abdomen was soft. Nontender. Non Distended. No pulsatile abdominal masses or bruits. No rebound. No guarding. Bowel sounds were present and normal. Muscle skeletal: Full range of motion of both the upper and lower extremities bilaterally.Normal muscle tone.No assymetrical calf tenderness or swelling. Skin: No petechia, no purpura. No lesions on the palms or the soles of the feet. No maculopapular rash. NEURO: Patient was alert, awake, orientated x3.No facial droop. Gait observed and normal with no ataxia.Speech had regular rate and rhythm. No focal neurological deficits. Procedures/MDM This is a 88-year-old female that presented to the emergency department after she had a mechanical fall with a scalp abrasion. I did obtain a CT scan the patient's head there is no intercerebral hemorrhage mass-effect or midline shift. Patient's tetanus is up-to-date. The patient had the wound irrigated using high-pressure normal saline. I was able to visualize the wound under direct light. Hemostasis was controlled. The patient did have an abrasion. Topical antimicrobial gel was applied to the wound. I did feel the patient was stable to be discharged home. She had a family member who came to pick her up. The patient was discharged home in fair condition. They were instructed to return to the emergency department at any time if there was any worsening of their condition. The patient stated they would follow up with their PCP in the next 24-48 hours to initiate a suitable medication regimen under the care of their PCP as well as to allow their PCP to monitor any drug reactions. The patient was discharged home with prescriptions after they gave informed consent to the new medication. They were also fully informed by myself on the adverse effects and adverse drug interactions in order to provide adequate safeguards to prevent possible adverse reactions to medications. Departure Diagnosis: Primary Impression: Scalp abrasion Encounter type: initial encounter Qualified Codes: S00.01XA - Abrasion of scalp, initial encounter Additional Impression: Closed head injury Encounter type: initial encounter Qualified Codes: S09.90XA - Unspecified injury of head, initial encounter Condition: Fair Patient Instructions: HEAD INJURY with Wake-Up (Adult) Referrals: BORIS ERNANDEZ MD (PCP) DICK GAFFNEY MD Dec 04, 2018 16:04
== END 2018-12-04 15:10 | disposition home or self-care (01) ==
LOC: E/R 12:21
DX: S00.03XA Contusion of scalp, initial encounter (principal); I10 Essential (primary) hypertension; E11.9 Type 2 diabetes mellitus without complications; W01.190A Fall on same level from slipping, tripping and stumbling with subsequent striking against furniture, initial encounter; Y92.9 Unspecified place or not applicable; Z79.84 Long term (current) use of oral hypoglycemic drugs; Z85.038 Personal history of other malignant neoplasm of large intestine
CPT/HCPCS: 70450

== ENCOUNTER 2018-12-06 16:33 | Emergency (ER) | payer MEDICARE ==
[~2018-12-06] VITALS: Wt 47.0 kg
[~2018-12-06 16:33] MED LIST changes: -CEPH-443 PO
--- NOTE | 2018-12-06 17:31 | ERD ---
ER Documentation Chief Complaint Chief Complaint MEC H FALL , HIT BACK HEAD, NO KO HAS HEMATOMA BACK PF HEAD HPI 88-year-old female presents the emergency department after hitting her head. Patient was walking with her walker when she excellently fell backwards and hit her head. She did not lose consciousness. She has no focal weakness or numbness or significant headache. Patient reports no other traumatic complaints. Upon review of the patient's history as well as conversations with her family, this is the third visit in 1 week for unsteadiness and 2 falls. Patient had diagnostic tests done recently with no indication significant acute decompensated medical illness. She states that she is compliant with her medications and occasionally uses her walker. ROS All systems reviewed and are negative except as per history of present illness. Medications Home Meds Reported Medications Trazodone Hcl* (Trazodone Hcl*) 50 Mg Tablet, 50 MG PO QHS, #30 TAB 11/25/18 Diltiazem Hcl* (Cardizem CD*) 120 Mg Cap.sr.24h, 120 MG PO DAILY, #30 CAP 11/25/18 Gabapentin* (Gabapentin*) 100 Mg Capsule, 100 MG PO BID, #90 CAP 11/25/18 Pantoprazole* (Protonix*) 40 Mg Tablet.dr, 40 MG PO DAILY, TAB 11/25/18 Lisinopril* (Lisinopril*) 40 Mg Tablet, 40 MG PO DAILY, #30 TAB 11/25/18 Metformin Hcl* (Metformin Hcl*) 500 Mg Tablet, 500 MG PO WITH BREAKFAST DINNE, #60 TAB 11/25/18 Discontinued Scripts Cephalexin* (Keflex*) 500 Mg Capsule, 500 MG PO BID for 7 Days, CAP Prov:LILIANE HATHAWAY MD 11/25/18 Allergies Allergies: Coded Allergies: sulfamethoxazole (Unverified Allergy, Mild, SWOLLEN LIPS/MOUTH 2 DAYS AFTER TAKING MED PER PT, 12/04/18) SAID IT COULD BE ALLERGIC RXN TO SAID MEDICINE PER PT trimethoprim (Unverified Allergy, Mild, SWOLLEN LIPS/MOUTH 2 DAYS AFTER TAKING MED PER PT, 12/04/18) SAID IT COULD BE ALLERGIC RXN TO SAID MEDICINE PER PT PMhx/Soc History of Surgery: Yes (ABDOMINAL ) Anesthesia Reaction: No Hx Neurological Disorder: No Hx Respiratory Disorders: No Hx Cardiac Disorders: Yes (HTN, HYPERLIPIDEMIA ) Hx Psychiatric Problems: No Hx Miscellaneous Medical Probl: Yes (DM II, COLON CA ) Hx Alcohol Use: No Hx Substance Use: No Hx Tobacco Use: No Smoking Status: Never smoker FmHx Supportive daughter at the bedside. Physical Exam Vitals Vital Signs Date Temp Pulse Resp B/P (MAP) Pulse Ox O2 O2 Flow FiO2 Time Delivery Rate 12/06/18 98.1 68 18 117/59 99 16:46 (78) Physical Exam General: Well developed, well nourished in no acute distress HEENT: Small contusion about the left occipital scalp. No evidence of skull fracture or basilar skull trauma. Face symmetric, stable and atraumatic. Neck: Full range of motion without discomfort or neurologic symptoms, no midline cervical spine tenderness, step-off, or evidence of significant trauma CV: Regular rate, rhythm, no murmurs appreciated Lungs: Clear to auscultation bilaterally with no chest wall trauma appreciated, chest wall stable with no crepitus Abdomen: Soft, atraumatic and non-tender in all 4 quadrants Extremities: Atraumatic with no bony tenderness or deformity in all 4 extremities, full range of motion throughout all joints; pelvis stable to both AP and lateral compression Back: No thoracic or lumbar midline tenderness, no step-off or evidence of significant trauma Neurologic: Awake, alert and oriented, pupils equal, round and reactive to light, face symmetric, tongue midline, moving all extremities with equal and normal strength, sensory exam grossly non-focal Procedures/MDM Patient was taken to a room, seen and evaluated. Comfort measures were initiated. Diagnostic tests were ordered and reviewed. 3 LEAD RHYTHM STRIP: Normal sinus rhythm without ectopy RADIOLOGY: Reviewed with the radiologist REEVALUATION: Default value MEDICAL DECISION MAKING: Patient presents after a fall. From a trauma standpoint, patient has been evaluated for significant injury. 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 I have reviewed medications and evaluated the patient's recent blood tests for infection, electrolyte concerns, ischemia and other acute medical concerns. Patient shows no evidence of significant decompensated medical illness From a social standpoint, the patient has been evaluated for safety. Patient has had multiple falls, but the family feels comfortable that she is in her normal functional status and she seems appropriate for discharge. Departure Diagnosis: Primary Impression: Closed head injury Additional Impression: Fall Condition: Stable TONYA DAWSON Dec 06, 2018 17:31
[2018-12-06 18:38] VITALS: BP 120/64; PULSE 66; RESP 20
== END 2018-12-06 18:40 | disposition home or self-care (01) ==
LOC: E/R 16:33
DX: S00.03XA Contusion of scalp, initial encounter (principal); E11.9 Type 2 diabetes mellitus without complications; I10 Essential (primary) hypertension; W01.198A Fall on same level from slipping, tripping and stumbling with subsequent striking against other object, initial encounter; Y92.9 Unspecified place or not applicable; Z79.84 Long term (current) use of oral hypoglycemic drugs; Z85.038 Personal history of other malignant neoplasm of large intestine
CPT/HCPCS: 70450

== ENCOUNTER 2019-01-31 10:36 | Emergency (ER) | payer MEDICARE, OTHER ==
[~2019-01-31] VITALS: Ht 149.9 cm; Wt 38.0 kg
[~2019-01-31 10:36] MED LIST changes: +TRAM50TA2 PO
[2019-01-31 10:39] VITALS: Ht 149.9 cm; Wt 38.0 kg
[2019-01-31] MEDS ORDERED: SOD CHLORIDE 0.9% 100 ML ONE (14:00)
[2019-01-31] MEDS ORDERED: IOHEXOL 300MG/ML 150 ML BTL ONE (14:00)
[2019-01-31 16:22] VITALS: BP 139/66; PULSE 72; RESP 18
== END 2019-01-31 16:43 | disposition home or self-care (01) ==
LOC: E/R 10:36
DX: M79.602 Pain in left arm (principal); E11.9 Type 2 diabetes mellitus without complications; I10 Essential (primary) hypertension; Z79.84 Long term (current) use of oral hypoglycemic drugs
CPT/HCPCS: 71045; 71260; 73030; 80053; 85025; 93005; 99285; Q9967